=== PATIENT | female | born 1965 | race Caucasian/White ===

== ENCOUNTER → 2020-10-10 | Outpatient (CLI) | payer OTHER ==
--- NOTE | 2020-10-13 16:36 | BD ---
EXAMINATION TYPE: Axial Bone Density DATE OF EXAM: 10/10/2020 COMPARISON: NONE CLINICAL HISTORY: 55 YR OLD FEMALE.....ICD-10 CODE: N95.1 POST MENOPAUSAL Height: 61.1 Weight: 284 FRAX RISK QUESTIONS: History of Fracture in Adulthood: YES Secondary Osteoporosis: YES 3. Menopause before 45: YES Current Tobacco Use: QUIT 8 YRS AGO RISK FACTORS HISTORY OF: HX OF RT HAND FX AN ADULT Family History of Osteoporosis: UNSURE Diet low in dairy products/other sources of calcium: NOT SINCE MAY 2020 Postmenopausal woman: YES, AT AGE 41 NATURALLY PT USES A CANE Lost more than 2 inches in height since high school: YES Hyperparathyroidism: NO Adrenal Insufficiency: NO MEDICATIONS: Additional Medications: BP MEDS, DIABETIC MEDS, REFLUX MEDS, STATIN FOR CHOLESTEROL Additional History: KIDNEY DISEASE, DIABETES, HYPERTENSION, REFLUX AND CHOLESTEROL EXAM MEASUREMENTS: Bone mineral densitometry was performed using the [employer] System. Bone mineral density as measured about the Lumbar spine is: ----- L1-L4(G/cm2): 1.358 T Score Values are as follows: ----- L1: 1.7 ----- L2: 0.8 ----- L3: 1.5 ----- L4: 1.8 ----- L1-L4: 1.5 Bone mineral density .....FIRST BONE DENSITY SCAN....BASELINE STUDY Bone mineral density about the R hip (g/cm2): 1.090 Bone mineral density about the L hip (g/cm2): 1012 T Score values are as follows: -----R Neck: 0.6 -----L Neck: 0.0 -----R Total: 0.7 -----L Total: 0.0 Bone mineral density FIRST DEXA SCAN....BASELINE STUDY FRAX%S: THERE IS A 7.6% CHANCE FOR A MAJOR OSTEOPOROTIC FX AND A 0.1% FOR HIP.....PROBABILITY FOR FX IN 10 YRS TIME IMPRESSION: Normal (Values between +1 and -1 indicate normal bone mass). Consider repeating this study in 5 year s or sooner if there is some new clinical indication. NOTE: T-SCORE=SD OF THE YOUNG ADULT MEAN.
== END | disposition home or self-care (01) ==
LOC: RADBDWWP 10:32
PROVIDERS: ATTEND Obstetrics & Gynecology
DX: Z13.820 Encounter for screening for osteoporosis (principal); Z78.0 Asymptomatic menopausal state
CPT/HCPCS: 77080

== ENCOUNTER 2021-02-18 10:26 | Inpatient (IN) | payer OTHER ==
--- NOTE | 2021-02-18 11:03 | ED ---
General Adult HPI - General Chief complaint: Arrhythmia/Palpitations Stated complaint: Palpations Time Seen by Provider: 02/18/21 10:41 Source: patient, RN notes reviewed, old records reviewed Mode of arrival: wheelchair Limitations: no limitations - History of Present Illness Initial comments: 55-year-old female presenting with palpitations over the past 24 hours. She has no associated chest pain. She does have some mild discomfort between her bila teral shoulder blades. No nausea vomiting. No fever. No cough. She has some mild dyspnea. No lower extremity pain or swelling. No history of arrhythmia. She has had intermittent palpitations for many years but these are not sustained. - Related Data Home Medications Medication Instructions Recorded Confirmed Aspirin 162 mg PO DAILY 12/16/14 03/07/17 Enalapril/Hydrochlorothiazide 1 tab PO DAILY 12/16/14 03/07/17 [Vaseretic 10-25 mg] Triamterene-Hctz 37.5-25Mg 1 cap PO DAILY 12/16/14 03/07/17 [Dyazide] Famotidine [Pepcid] 20 mg PO DAILY 03/07/17 03/07/17 glipiZIDE [Glucotrol] 10 mg PO BID 03/07/17 03/07/17 Previous Rx's Medication Instructions Recorded Meclizine [Antivert] 25 mg PO TID #20 tab 03/07/17 Allergies Allergy/AdvReac Type Severity Reaction Status Date / Time codeine AdvReac Nausea & Verified 02/18/21 10:33 Vomiting,skin flushing Penicillins AdvReac Nausea & Verified 02/18/21 10:33 Vomiting Review of Systems ROS Statement: Those systems with pertinent positive or pertinent negative responses have been documented in the HPI. ROS Other: All systems not noted in ROS Statement are negative. Past Medical History Past Medical History: Diabetes Mellitus, Hyperlipidemia, Hypertension, Osteoarthritis (OA) Additional Past Medical History / Comment(s): PAIN TO STOMACH AFTER EATING History of Any Multi-Drug Resistant Organisms: None Reported Past Surgical History: Cholecystectomy, Hernia Repair, Orthopedic Surgery, Tubal Ligation Additional Past Surgical History / Comment(s): FÁTIMA KNEE,ABD HERNIA REPAIR Additional Past Anesthesia/Blood Transfusion Reaction / Comment(s): SLOW TO WAKE UP FROM ANESTHESIA, STATED "MOM ALMOST AFTER SURGERY-HAD DIFFICULTY WAKING UP" Past Psychological History: No Psychological Hx Reported Past Alcohol Use History: Occasional Past Drug Use History: None Reported - Past Family History Mother Family Medical History: Chest Pain / Angina, Deep Vein Thrombosis (DVT) Father Family Medical History: Coronary Artery Disease (CAD), Diabetes Mellitus Additional Family Medical History / Comment(s): IN CAR ACCIDENT General Exam Limitations: no limitations General appearance: alert, in no apparent distress Head exam: Present: atraumatic, normocephalic Eye exam: Present: normal appearance, PERRL ENT exam: Present: normal exam Neck exam: Present: normal inspection. Absent: tenderness Respiratory exam: Present: normal lung sounds bilaterally, respiratory distress Cardiovascular Exam: Present: tachycardia, irregular rhythm GI/Abdominal exam: Present: soft. Absent: distended, tenderness, guarding, rebound Extremities exam: Present: normal inspection, normal capillary refill. Absent: pedal edema Neurological exam: Present: alert, oriented X3, CN II-XII intact. Absent: motor sensory deficit Psychiatric exam: Present: normal affect, normal mood Skin exam: Present: warm, dry, intact. Absent: cyanosis, diaphoretic, erythema Course Vital Signs 02/18/21 02/18/21 10:33 13:08 Temperature 98.0 F 98.5 F Pulse Rate 98 101 H Respiratory 16 18 Rate Blood Pressure 158/85 145/98 O2 Sat by Pulse 96 100 Oximetry EKG Findings - EKG Comments: EKG Findings:: EKG: Atrial fibrillation with rapid ventricular response, low voltage, rate of 109, QRS duration 90, QTC 457, no ST segment elevation. Medical Decision Making - Medical Decision Making 55-year-old female presenting with palpitations, found to be in atrial fibrillation with RVR. No previous history. Patient is otherwise well- appearing with stable vitals. She has a normal CBC, normal CMP, she has a minimally elevated troponin which is likely from demand at 0.044. She started on Cardizem and heparin. She will be admitted to a monitored bed with cardiology on consultation. Case is discussed with Dr. Paz. - Lab Data Result diagrams: 02/18/21 11:08 02/18/21 11:08 Lab Results 02/18/21 02/18/21 02/18/21 Range/Units 11:08 11:08 11:08 WBC 9.7 (3.8-10.6) k/uL RBC 4.87 (3.80-5.40) m/uL Hgb 14.8 (11.4-16.0) gm/dL Hct 43.6 (34.0-46.0) % MCV 89.4 (80.0-100.0) fL MCH 30.3 (25.0-35.0) pg MCHC 33.9 (31.0-37.0) g/dL RDW 14.3 (11.5-15.5) % Plt Count 372 (150-450) k/uL MPV 6.7 Neutrophils % 71 % Lymphocytes % 16 % Monocytes % 6 % Eosinophils % 4 % Basophils % 1 % Neutrophils # 6.9 (1.3-7.7) k/uL Lymphocytes # 1.5 (1.0-4.8) k/uL Monocytes # 0.6 (0-1.0) k/uL Eosinophils # 0.4 (0-0.7) k/uL Basophils # 0.1 (0-0.2) k/uL PT 10.3 (9.0-12.0) sec INR 1.0 (<1.2) APTT 22.4 (22.0-30.0) sec Sodium 138 (137-145) mmol/L Potassium 4.2 (3.5-5.1) mmol/L Chloride 103 (98-107) mmol/L Carbon Dioxide 23 (22-30) mmol/L Anion Gap 12 mmol/L BUN 22 H (7-17) mg/dL Creatinine 0.64 (0.52-1.04) mg/dL Est GFR (CKD-EPI)AfAm >90 (>60 ml/min/1.73 sqM) Est GFR (CKD-EPI)NonAf >90 (>60 ml/min/1.73 sqM) Glucose 236 H (74-99) mg/dL Calcium 10.1 (8.4-10.2) mg/dL Magnesium 1.9 (1.6-2.3) mg/dL Total Bilirubin 0.6 (0.2-1.3) mg/dL AST 26 (14-36) U/L ALT 21 (4-34) U/L Alkaline Phosphatase 59 (38-126) U/L Troponin I (0.000-0.034) ng/mL Total Protein 7.5 (6.3-8.2) g/dL Albumin 4.3 (3.5-5.0) g/dL TSH 1.040 (0.465-4.680) mIU/L 02/18/21 Range/Units 11:08 WBC (3.8-10.6) k/uL RBC (3.80-5.40) m/uL Hgb (11.4-16.0) gm/dL Hct (34.0-46.0) % MCV (80.0-100.0) fL MCH (25.0-35.0) pg MCHC (31.0-37.0) g/dL RDW (11.5-15.5) % Plt Count (150-450) k/uL MPV Neutrophils % % Lymphocytes % % Monocytes % % Eosinophils % % Basophils % % Neutrophils # (1.3-7.7) k/uL Lymphocytes # (1.0-4.8) k/uL Monocytes # (0-1.0) k/uL Eosinophils # (0-0.7) k/uL Basophils # (0-0.2) k/uL PT (9.0-12.0) sec INR (<1.2) APTT (22.0-30.0) sec Sodium (137-145) mmol/L Potassium (3.5-5.1) mmol/L Chloride (98-107) mmol/L Carbon Dioxide (22-30) mmol/L Anion Gap mmol/L BUN (7-17) mg/dL Creatinine (0.52-1.04) mg/dL Est GFR (CKD-EPI)AfAm (>60 ml/min/1.73 sqM) Est GFR (CKD-EPI)NonAf (>60 ml/min/1.73 sqM) Glucose (74-99) mg/dL Calcium (8.4-10.2) mg/dL Magnesium (1.6-2.3) mg/dL Total Bilirubin (0.2-1.3) mg/dL AST (14-36) U/L ALT (4-34) U/L Alkaline Phosphatase (38-126) U/L Troponin I 0.044 H* (0.000-0.034) ng/mL Total Protein (6.3-8.2) g/dL Albumin (3.5-5.0) g/dL TSH (0.465-4.680) mIU/L Critical Care Time Critical Care Time: Yes Total Critical Care Time: 35 Disposition Clinical Impression: Atrial fibrillation with RVR, Elevated troponin Disposition: ADMITTED IP TO THIS [facility] Condition: Stable Is patient prescribed a controlled substance at d/c from ED?: No Referrals: Nonstaff,Physician [Primary Care Provider] - 1-2 days Decision to Admit Reason: Admit from EC Decision Date: 02/18/21 Decision Time: 14:20
--- NOTE | 2021-02-18 11:19 | XR ---
EXAMINATION TYPE: XR chest 2V DATE OF EXAM: 02/18/2021 COMPARISON: 03/07/2017 INDICATION: Dysrhythmia lightheaded TECHNIQUE: Frontal and lateral views of the chest are obtained. FINDINGS: The heart size is normal. The pulmonary vasculature is normal. The lungs are clear. IMPRESSION: 1. No acute pulmonary process.
[2021-02-18 11:28] LABS: Basophils # (A) 0.1 k/uL (0-0.2); Basophils % (A) 1 %; Eosinophils # (A) 0.4 k/uL (0-0.7); Eosinophils % (A) 4 %; HCT 43.6 % (34.0-46.0); HGB 14.8 gm/dL (11.4-16.0); Lymphocytes # (A) 1.5 k/uL (1.0-4.8); Lymphocytes % (A) 16 %; MCH 30.3 pg (25.0-35.0); MCHC 33.9 g/dL (31.0-37.0); MCV 89.4 fL (80.0-100.0); Mean Platelet Volume 6.7; Monocytes # (A) 0.6 k/uL (0-1.0); Monocytes % (A) 6 %; Neutrophils # (A) 6.9 k/uL (1.3-7.7); Neutrophils % (A) 71 %; Platelet Count 372 k/uL (150-450); RBC 4.87 m/uL (3.80-5.40); RDW 14.3 % (11.5-15.5); WBC 9.7 k/uL (3.8-10.6)
[2021-02-18 11:37] LABS: Partial Thromboplastin Time 22.4 sec (22.0-30.0); Prothrombin Time 10.3 sec (9.0-12.0)
[2021-02-18 11:42] LABS: ALT 21 U/L (4-34); AST 26 U/L (14-36); African American GFR (CKD) >90 (>60 ml/min/1.73 sqM); Albumin 4.3 g/dL (3.5-5.0); Alkaline Phosphatase 59 U/L (38-126); Anion Gap 12 mmol/L; Blood Urea Nitrogen 22 mg/dL (7-17); Calcium 10.1 mg/dL (8.4-10.2); Carbon Dioxide 23 mmol/L (22-30); Chloride 103 mmol/L (98-107); Glucose 236 mg/dL (74-99); Magnesium 1.9 mg/dL (1.6-2.3); Non-African American GFR(CKD) >90 (>60 ml/min/1.73 sqM); Potassium 4.2 mmol/L (3.5-5.1); Sodium 138 mmol/L (137-145); Total Bilirubin 0.6 mg/dL (0.2-1.3); Total Protein 7.5 g/dL (6.3-8.2)
[2021-02-18] MEDS ORDERED: HEPARIN SODIUM 1,000 UN/ML (10ML VL) IV ONE (13:04)
[2021-02-18] MEDS ORDERED: DILTIAZEM DRIP BOLUS FROM BAG 1 MG SOLN IV ONE (13:04)
[2021-02-18] MEDS: HEPARIN SOD,PORK IN 0.45% NACL 25,000 UNIT in 0.45% NACL 1 250ML.BAG IV SCH (14:11)
[2021-02-18] MEDS: DILTIAZEM 125 MG in SODIUM CHLORIDE 0.9% 100 ML IV SCH (14:12)
[2021-02-18] MEDS ORDERED: ACETAMINOPHEN TAB 325 MG TAB PO PRN (14:17)
[2021-02-18] MEDS ORDERED: NALOXONE 0.4 MG/ML 1 ML VIAL IV PRN (14:17)
[2021-02-18 19:52] LABS: Glucose,Whole Blood 158 mg/dL (75-99)
[2021-02-18] MEDS: ASPIRIN 81 MG PO SCH (20:05)
[2021-02-18] MEDS: ATORVASTATIN 10 MG TAB PO SCH (20:05)
[2021-02-18] MEDS: HEPARIN SODIUM 1,000 UN/ML (10ML VL) IV PRN (20:05)
[2021-02-18] MEDS: FAMOTIDINE 20 MG TAB PO SCH (20:05)
--- NOTE | 2021-02-18 20:33 | HP ---
HISTORY AND PHYSICAL DATE OF SERVICE: February 18, 2021. CHIEF COMPLAINT: Palpitations. HISTORY OF PRESENT ILLNESS: This 55-year-old woman with a past medical history of diabetes, hypertension, hyperlipidemia, history of DJD, cholecystectomy, being followed by apparently a tele doc from [place] according to her as the primary physician. The patient had multiple episodes of palpitations and today also the patient had palpitations, lasted for almost several hours and the patient came to [facility]. The patient was found to be in atrial fibrillation Cardizem was initiated. Patient admitted to the hospital for further evaluation and treatment. Troponin is also slightly elevated. There is no history of fever, rigors or chills. No history of headache, loss of consciousness or seizures. Patient also complaining of pain radiating between both shoulders at this time. PAST MEDICAL HISTORY: Diabetes type 2, hyperlipidemia, hypertension, DJD, history of cholecystectomy. MEDICATIONS: Prior to admission: hydrochlorothiazide, Glucotrol, Zocor, Steglatro, Vasotec, calcium with vitamin D, Pepcid, aspirin. Doses reviewed. ALLERGIES: CODEINE AND PENICILLIN. FAMILY HISTORY: History of chest pain, DVT. SOCIAL HISTORY: Previous history of smoking. No history of alcohol intake. REVIEW OF SYSTEMS: ENT: No diminished vision. No diminished hearing. CARDIOVASCULAR system: As mentioned earlier. RESPIRATORY: As mentioned earlier. GI: No nausea or vomiting. : No dysuria. NERVOUS SYSTEM: No numbness, weakness. ALLERGY/IMMUNOLOGY: No asthma or hayfever. MUSCULOSKELETAL as mentioned earlier. HEMATOLOGY/ONCOLOGY: No history of anemia. ENDOCRINE: No history of diabetes or hypothyroidism. CONSTITUTIONAL: As mentioned earlier. DERMATOLOGY negative. RHEUMATOLOGY: Negative. CONSTITUTIONAL: As mentioned earlier. PHYSICAL EXAMINATION: Alert and oriented times three. Pulse is 101. Blood pressure 145/89, respiration 18, temperature 98. Pulse ox 100 percent on 2 L. HEENT: Conjunctivae normal. NECK: No JVD. CARDIOVASCULAR: S1, S2 tachycardic and irregular. Cardizem drip on flow. RESPIRATORY: Breath sounds diminished in the bases. Scattered rhonchi and crackles. ABDOMEN: Soft, nontender. LEGS: No edema. No swelling. NERVOUS SYSTEM: Higher functions as mentioned earlier. Moves all 4 limbs. No focal motor or sensory deficits. LYMPHATICS: No lymph nodes palpable in the neck, axillae or groin. SKIN: No ulcer, rashes or bleeding. JOINTS: No active deforming arthropathy. LABS: CBC within normal limits. Glucose 236. Troponin 0.044 and 0.039. ASSESSMENT: 1. Atrial fibrillation with a fast ventricular rate. 2. Troponin 0.039, possible acute oge-JO-vpbyazi-elevation myocardial infarction. 3. Diabetes mellitus type 2, uncontrolled with hyperglycemia. 4. Hypertension. 5. Hyperlipidemia. 6. History of degenerative joint disease. 7. History of cholecystectomy. 8. History of hernia repair. 9. Remote history of nicotine dependence. 10.Obesity with body mass of 52.3. 11.FULL CODE. RECOMMENDATIONS AND DISCUSSION: This 55-year-old woman who presented with multiple complex medical issues, we will monitor the patient closely. Continue the current medications, continue the Cardizem. Cardiology evaluation. Two-D echo with Doppler. Also recommend a D-dimer and if it is positive, we will definitely recommend a CT angio of the chest also. Prognosis guarded. Further recommendations to follow. CASSIUS / TALITAN: [id number] / JUANITA
[2021-02-18] MEDS: glipiZIDE 10 MG TAB PO SCH (21:33)
[2021-02-18] MEDS: CALCIUM CARB-VIT D 500 MG-5 MCG TAB PO SCH (21:33)
[2021-02-18 21:48] LABS: Appearance,Urine Cloudy (Clear); Bacteria,Urine Moderate /hpf; Bilirubin,Urine Negative (Negative); Blood,Urine Large (Negative); Color,Urine Light Yellow; Glucose,Urine (UA) 4+ (Negative); Ketones,Urine Negative (Negative); Leukocyte Esterase,Urine Large (Negative); Mucus,Urine Rare /hpf; Nitrite,Urine Positive (Negative); Protein,Urine Trace (Negative); RBC,Urine 104 /hpf (0-5); Specific Gravity,Urine 1.023 (1.001-1.035); Squamous Epithelial Cell,Urine 1 /hpf (0-4); Urobilinogen,Urine <2.0 mg/dL (<2.0); WBC,Urine >182 /hpf (0-5)
[2021-02-19 03:34] LABS: Basophils # (A) 0.1 k/uL (0-0.2); Basophils % (A) 1 %; Eosinophils # (A) 0.5 k/uL (0-0.7); Eosinophils % (A) 6 %; HCT 42.1 % (34.0-46.0); Lymphocytes # (A) 2.9 k/uL (1.0-4.8); Lymphocytes % (A) 30 %; MCH 30.1 pg (25.0-35.0); MCHC 33.1 g/dL (31.0-37.0); MCV 90.9 fL (80.0-100.0); Mean Platelet Volume 6.9; Monocytes # (A) 0.6 k/uL (0-1.0); Monocytes % (A) 6 %; Neutrophils # (A) 5.1 k/uL (1.3-7.7); Neutrophils % (A) 54 %; Platelet Count 344 k/uL (150-450); RBC 4.63 m/uL (3.80-5.40); RDW 14.5 % (11.5-15.5); WBC 9.4 k/uL (3.8-10.6)
[2021-02-19 03:35] LABS: ALT 18 U/L (4-34); AST 22 U/L (14-36); African American GFR (CKD) >90 (>60 ml/min/1.73 sqM); Albumin 3.8 g/dL (3.5-5.0); Alkaline Phosphatase 54 U/L (38-126); Anion Gap 10 mmol/L; Blood Urea Nitrogen 21 mg/dL (7-17); Calcium 9.5 mg/dL (8.4-10.2); Carbon Dioxide 23 mmol/L (22-30); Chloride 103 mmol/L (98-107); Glucose 112 mg/dL (74-99); Non-African American GFR(CKD) >90 (>60 ml/min/1.73 sqM); Potassium 3.8 mmol/L (3.5-5.1); Sodium 136 mmol/L (137-145); Total Bilirubin 0.4 mg/dL (0.2-1.3); Total Protein 6.6 g/dL (6.3-8.2)
[2021-02-19] MEDS: HEPARIN SODIUM 1,000 UN/ML (10ML VL) IV PRN (03:51)
[2021-02-19 06:27] LABS: Glucose,Whole Blood 117 mg/dL (75-99)
[2021-02-19] MEDS: HEPARIN SOD,PORK IN 0.45% NACL 25,000 UNIT in 0.45% NACL 1 250ML.BAG IV SCH (06:34)
[2021-02-19 06:42] LABS: Basophils # (A) 0.1 k/uL (0-0.2); Basophils % (A) 1 %; Eosinophils # (A) 0.5 k/uL (0-0.7); Eosinophils % (A) 5 %; HCT 42.1 % (34.0-46.0); HGB 13.9 gm/dL (11.4-16.0); Lymphocytes # (A) 2.5 k/uL (1.0-4.8); Lymphocytes % (A) 25 %; MCHC 33.1 g/dL (31.0-37.0); MCV 90.9 fL (80.0-100.0); Mean Platelet Volume 7.1; Monocytes # (A) 0.7 k/uL (0-1.0); Monocytes % (A) 7 %; Neutrophils # (A) 5.9 k/uL (1.3-7.7); Neutrophils % (A) 59 %; Platelet Count 338 k/uL (150-450); RBC 4.63 m/uL (3.80-5.40); RDW 14.4 % (11.5-15.5); WBC 10.1 k/uL (3.8-10.6)
[2021-02-19 06:49] LABS: INR 1.1 (<1.2); Prothrombin Time 11.4 sec (9.0-12.0)
[2021-02-19] MEDS: CALCIUM CARB-VIT D 500 MG-5 MCG TAB PO SCH ×2 (08:14→20:05)
[2021-02-19] MEDS: METOPROLOL TARTRATE 50 MG TAB PO SCH ×2 (08:14→20:05)
[2021-02-19] MEDS: lisinopriL 20 MG TAB PO SCH (08:14)
[2021-02-19] MEDS: hydroCHLOROthiazide 25 MG TAB PO SCH (08:14)
[2021-02-19] MEDS: glipiZIDE 10 MG TAB PO SCH ×2 (08:14→17:04)
[2021-02-19 10:11] LABS: Partial Thromboplastin Time 38.2 sec (22.0-30.0)
--- NOTE | 2021-02-19 10:39 | P.CRDCN ---
History of Present Illness Consult date: 02/19/21 History of present illness: HISTORY OF PRESENT ILLNESS: This is a 55-year-old female with a past medical history significant for hypertension, hyperlipidemia, diabetes, and former nicotine dependence. Patient does not follow with a teaching aide. We have been asked to see the patient in consultation for new onset A. fib. Patient examined at the bedside. Patient states 2 nights ago she began having palpitations and shortness of breath as she was cleaning up dishes from dinner. She reports that she had palpitations in the past but they usually go away after a minute and on this occasion her palpitations persisted so she came to the hospital for further evaluation. Patient was found to be in A. fib with mild RVR. Patient was started on IV Cardizem and IV heparin. Patient remains in atrial fibrillation this morning with a heart rate in the 90s. She denies chest pain or pressure. She denies shortness of breath. She denies palpitations. She denies dizziness or lightheadedness. EKG reveals atrial fibrillation with mild RVR. Chest xray negative for acute process Laboratory data: WBC 10.1. Hemoglobin 13.9. Platelet count 338. D-dimer 0.65. Sodium 136. Potassium 3.8. BUN 21. Creatinine 0.70. TSH 1.040. Current home cardiac medications include hydrochlorothiazide 25 mg daily, Zocor 20 mg daily, enalapril 20 mg daily, aspirin 162 mg at night REVIEW OF SYSTEMS: At the time of my exam: CONSTITUTIONAL: Denies fever or chills. HEENT: Denies blurred vision, vision changes, or eye pain. Denies hemoptysis CARDIOVASCULAR: Denies chest pain. Denies orthopnea. Denies PND. Denies palpitations RESPIRATORY: Denies shortness of breath. GASTROINTESTINAL: Denies abdominal pain. Denies nausea or vomiting. HEMATOLOGIC: Denies bleeding disorders. GENITOURINARY: Denies any blood in urine. SKIN: Denies pruitis. Denies rash. PHYSICAL EXAM: VITAL SIGNS: Reviewed. GENERAL: Well-developed in no acute distress. HEENT: Head is normocephalic. Pupils are equal, round. Sclerae anicteric. Mucous membranes of the mouth are moist. Neck supple. No JVD or thyromegaly LUNGS: Respirations even and unlabored. Lungs essentially clear to auscultation bilaterally. HEART: Irregular rate and rhythm. S1 and S2 heard. ABDOMEN: Soft. Nondistended. Nontender. EXTREMITIES: Normal range of motion. No clubbing or cyanosis. Peripheral pulses intact. No lower extremity edema NEUROLOGIC: Awake and alert. Oriented x 3. ASSESSMENT: Palpitations New-onset atrial fibrillation with RVR Abnormal troponins, secondary to above, no evidence of acute coronary syndrome Hypertension Hyperlipidemia Diabetes Former nicotine dependence, patient quit smoking 9 years ago Morbid obesity: BMI 52.3 PLAN: Obtain 2-D echo to assess cardiac structure and function TSH within normal limits Begin metoprolol 50 mg twice a day Discontinue IV Cardizem Obtain chest CTA to rule out PE Begin Eliquis 5mg BID. Case management consulted and verified insurance c overage. Further recommendations pending patient course Nurse practitioner note has been reviewed by physician. Signing provider agrees with the documented findings, assessment, and plan of care. Past Medical History Past Medical History: Diabetes Mellitus, Hyperlipidemia, Hypertension, Osteoarthritis (OA), Renal Disease, Sleep Apnea/CPAP/BIPAP Additional Past Medical History / Comment(s): PAIN TO STOMACH AFTER EATING History of Any Multi-Drug Resistant Organisms: None Reported Past Surgical History: Cholecystectomy, Hernia Repair, Orthopedic Surgery, Tubal Ligation Additional Past Surgical History / Comment(s): FÁTIMA KNEE,ABD HERNIA REPAIR Additional Past Anesthesia/Blood Transfusion Reaction / Comment(s): SLOW TO WAKE UP FROM ANESTHESIA, STATED "MOM ALMOST AFTER SURGERY-HAD DIFFICULTY WAKING UP" Past Psychological History: No Psychological Hx Reported Smoking Status: Former smoker Past Alcohol Use History: Occasional Additional Past Alcohol Use History / Comment(s): QUIT SMOKING 2010, STARTED SMOKING 1977 Past Drug Use History: None Reported - Past Family History Mother Family Medical History: Chest Pain / Angina, Deep Vein Thrombosis (DVT) Father Family Medical History: Coronary Artery Disease (CAD), Diabetes Mellitus Additional Family Medical History / Comment(s): IN CAR ACCIDENT Medications and Allergies Home Medications Medication Instructions Recorded Confirmed Type Aspirin 162 mg PO HS 12/16/14 02/18/21 History Famotidine [Pepcid] 20 mg PO HS 03/07/17 02/18/21 History glipiZIDE [Glucotrol] 10 mg PO BID 03/07/17 02/18/21 History Calcium Carbonate/Vitamin D3 1 cap PO BID 02/18/21 02/18/21 History [Calcium 600 mg-D3 10 Mcg (400 Iu)] Enalapril [Vasotec] 20 mg PO DAILY 02/18/21 02/18/21 History Ertugliflozin Pidolate [Steglatro] 15 mg PO DAILY 02/18/21 02/18/21 History Simvastatin [Zocor] 20 mg PO HS 02/18/21 02/18/21 History hydroCHLOROthiazide 25 mg PO DAILY 02/18/21 02/18/21 History Apixaban [Eliquis] 5 mg PO BID #60 tab 02/19/21 Rx Allergies Allergy/AdvReac Type Severity Reaction Status Date / Time codeine AdvReac Nausea & Verified 02/18/21 16:00 Vomiting,skin flushing Penicillins AdvReac Nausea & Verified 02/18/21 16:00 Vomiting Physical Exam Vitals: Vital Signs Temp Pulse Pulse Resp BP BP Pulse Ox 02/19/21 04:00 98.0 F 76 18 130/84 98 02/18/21 23:15 98.6 F 78 18 118/79 96 02/18/21 21:53 98.1 F 72 18 107/76 96 02/18/21 19:45 98.8 F 84 18 131/85 96 02/18/21 14:22 98 18 135/89 98 02/18/21 13:08 98.5 F 101 H 18 145/98 100 02/18/21 10:33 98.0 F 98 16 158/85 96 Intake and Output 02/18/21 02/19/21 02/19/21 22:59 06:59 14:59 Intake Total 62 157.781 Balance 62 157.781 Intake: Intake, IV Titration 62 157.781 Amount Diltiazem 125 mg In 5 Sodium Chloride 0.9% 100 ml @ 5 MG/HR 5 mls/hr IV .Q24H [facility] Rx#:[id number] Heparin Sod,Pork in 0.45% 57 157.781 NaCl 25,000 unit In 0.45 % NaCl 1 250ml.bag @ 7. 959 UNITS/KG/HR 10 mls/hr IV .Q24H [facility] Rx#: [id number] Other: Voiding Method Toilet Weight 125.645 kg Results 02/19/21 05:48 02/19/21 03:00 Cardiac Enzymes 02/18/21 02/18/21 02/18/21 Range/Units 11:08 11:08 15:34 AST 26 (14-36) U/L Troponin I 0.044 H* 0.039 H* (0.000-0.034) ng/mL 02/18/21 02/19/21 Range/Units 19:18 03:00 AST 22 (14-36) U/L Troponin I 0.029 (0.000-0.034) ng/mL Coagulation 02/18/21 02/18/21 02/19/21 Range/Units 11:08 19:18 03:00 PT 10.3 (9.0-12.0) sec APTT 22.4 24.2 28.8 (22.0-30.0) sec 02/19/21 Range/Units 05:48 PT 11.4 (9.0-12.0) sec APTT (22.0-30.0) sec CBC 02/18/21 02/19/21 02/19/21 Range/Units 11:08 03:00 05:48 WBC 9.7 9.4 10.1 (3.8-10.6) k/uL RBC 4.87 4.63 4.63 (3.80-5.40) m/uL Hgb 14.8 14.0 13.9 (11.4-16.0) gm/dL Hct 43.6 42.1 42.1 (34.0-46.0) % Plt Count 372 344 338 (150-450) k/uL Comprehensive Metabolic Panel 02/18/21 02/19/21 Range/Units 11:08 03:00 Sodium 138 136 L (137-145) mmol/L Potassium 4.2 3.8 (3.5-5.1) mmol/L Chloride 103 103 (98-107) mmol/L Carbon Dioxide 23 23 (22-30) mmol/L BUN 22 H 21 H (7-17) mg/dL Creatinine 0.64 0.70 (0.52-1.04) mg/dL Glucose 236 H 112 H (74-99) mg/dL Calcium 10.1 9.5 (8.4-10.2) mg/dL AST 26 22 (14-36) U/L ALT 21 18 (4-34) U/L Alkaline Phosphatase 59 54 (38-126) U/L Total Protein 7.5 6.6 (6.3-8.2) g/dL Albumin 4.3 3.8 (3.5-5.0) g/dL Current Medications Generic Name Dose Route Start Last Admin Trade Name Freq PRN Reason Stop Dose Admin Acetaminophen 650 mg 02/18/21 14:17 02/18/21 14:28 Acetaminophen Tab 325 Mg Tab PO 650 mg Q6HR PRN Administration Mild Pain or Fever > 100.5 Aspirin 162 mg 02/18/21 21:00 02/18/21 20:05 Aspirin 81 Mg PO 162 mg HS [facility] Administration Atorvastatin Calcium 10 mg 02/18/21 21:00 02/18/21 20:05 Atorvastatin 10 Mg Tab PO 10 mg HS [facility] Administration Calcium Carbonate 1 each 02/18/21 21:00 02/18/21 21:33 Calcium Carb-Vit D 500 Mg-5 Mcg Tab PO 1 each BID [facility] Administration Famotidine 20 mg 02/18/21 21:00 02/18/21 20:05 Famotidine 20 Mg Tab PO 20 mg HS [facility] Administration Glipizide 10 mg 02/18/21 21:00 02/18/21 21:33 Glipizide 10 Mg Tab PO 10 mg AC-BID [facility] Administration Heparin Sodium (Porcine) 0 unit 02/18/21 13:04 02/19/21 03:51 Heparin Sodium 1,000 Un/Ml (10ml Vl) IV 4,000 unit PER PROTOCOL PRN Administration Low PTT Protocol Hydrochlorothiazide 25 mg 02/19/21 09:00 Hydrochlorothiazide 25 Mg Tab PO DAILY [facility] Heparin Sodium/Sodium Chloride 250 mls @ 10 mls/hr 02/18/21 13:15 02/19/21 06:34 25,000 unit/ Sodium Chloride IV 13.959 units/kg/hr .Q24H [facility] 17.539 mls/hr Administration Protocol 7.959 UNITS/KG/HR Diltiazem HCl 125 mg/ Sodium 125 mls @ 5 mls/hr 02/18/21 14:00 02/18/21 14:12 Chloride IV 5 mg/hr .Q24H [facility] 5 mls/hr Administration 5 MG/HR Lisinopril 40 mg 02/19/21 09:00 Lisinopril 20 Mg Tab PO DAILY [facility] Metoprolol Tartrate 50 mg 02/19/21 09:00 Metoprolol Tartrate 50 Mg Tab PO BID [facility] Naloxone HCl 0.2 mg 02/18/21 14:17 Naloxone 0.4 Mg/Ml 1 Ml Vial IV Q2M PRN Opioid Reversal Ertugliflozin 15 mg 02/19/21 09:00 Pidolate [Steglatro] PO 15 Mg Tablet DAILY [facility] Intake and Output 02/18/21 02/19/21 02/19/21 22:59 06:59 14:59 Intake Total 62 157.781 Balance 62 157.781 Intake: Intake, IV Titration 62 157.781 Amount Diltiazem 125 mg In 5 Sodium Chloride 0.9% 100 ml @ 5 MG/HR 5 mls/hr IV .Q24H [facility] Rx#:[id number] Heparin Sod,Pork in 0.45% 57 157.781 NaCl 25,000 unit In 0.45 % NaCl 1 250ml.bag @ 7. 959 UNITS/KG/HR 10 mls/hr IV .Q24H [facility] Rx#: [id number] Other: Voiding Method Toilet Weight 125.645 kg 02/19/21 05:48 02/19/21 03:00
--- NOTE | 2021-02-19 11:33 | CT ---
CT CHEST FOR PULMONARY EMBOLISM. EXAMINATION TYPE: CT chest angio for PE DATE OF EXAM: 02/19/2021 INDICATION: Rule out PE. New onset A-fib, Elevated troponin CT DLP: 912.3 mGycm, Automated exposure control for dose reduction was used. CONTRAST: Patient injected with 100 ml mL of Isovue 370. COMPARISON: None TECHNIQUE: CT of the chest is performed on a spiral scan at 2 mm thick sections. Study is performed with intravenous contrast timed for evaluation for pulmonary embolism. This will limit additional po rtions of the evaluation. 3-D MIP images reconstructed by the technologist are reviewed on the compu ter in the coronal and sagittal planes. Contrast timing is suboptimal with greater contrast within th e arterial system within the pulmonary arteries. FINDINGS: No persistent filling defects are evident to suggest an acute pulmonary embolism to the level of cont rast available. No mediastinal or hilar adenopathy enlarged by CT criteria is evident. There is a 1.1 cm left axilla ry lymph node present. Some additional shoddy adenopathy is the left axilla. The ascending aorta diam eter at the level of the main pulmonary artery is 3.2 cm. The main pulmonary artery diameter at the bifurcation is 3.1 cm. Lung windows are clear. Limited CT section through the upper abdomen are unremarkable. IMPRESSIONS: 1. No acute pulmonary embolism. Contrast timing however is suboptimal and there is some limitation fo r identifying small peripheral emboli.
[2021-02-19 11:44] LABS: Glucose,Whole Blood 131 mg/dL (75-99)
--- NOTE | 2021-02-19 11:44 | ECHOF ---
Referral Reason:afib MEASUREMENTS -------- HEIGHT: 154.9 cm WEIGHT: 125.6 kg BP: 124/91 RVIDd: 3.8 cm (< 3.3) IVSd: 1.6 cm (0.6 - 1.1) LVIDd: 4.1 cm (3.9 - 5.3) LVPWd: 2.0 cm (0.6 - 1.1) IVSs: 1.9 cm LVIDs: 2.4 cm LVPWs: 1.9 cm LAESV Index (A-L): 25.02 ml/m Ao Diam: 3.4 cm (2.0 - 3.7) RAP: 5.00 mmHg RVSP: 19.46 mmHg FINDINGS -------- Atrial fibrillation. This was a technically difficult study with suboptimal views. The left ventricular size is normal. There is moderate concentric left ventricular hypertrophy. O verall left ventricular systolic function is normal with, an EF between 55 - 60 %. Left ventricular fillimg pressure cannot be estimated due to Atrial fibrillation. The right ventricle is mild to moderately enlarged. Normal LA size by volume 22+/-6 ml/m2. The right atrial size is normal. 5.0mg of Lumason was utilized for enhancement of images Interatrial and interventricular septum intact. There is no evidence of aortic regurgitation. There is no evidence of aortic stenosis. No mitral regurgitation. Mild tricuspid regurgitation present. There is no evidence of pulmonary hypertension. The right v entricular systolic pressure, as measured by Doppler, is 19.46mmHg. There is no pulmonic regurgitation present. The aortic root size is normal. IVC Not well visulized. Echo free space may represent effusion or a pericardial fat pad. CONCLUSIONS -------- 1. The left ventricular size is normal. 2. There is moderate concentric left ventricular hypertrophy. 3. Overall left ventricular systolic function is normal with, an EF between 55 - 60 %. 4. Left ventricular fillimg pressure cannot be estimated due to Atrial fibrillation. 5. The right ventricle is mild to moderately enlarged. 6. Mild tricuspid regurgitation present. 7. Echo free space may represent effusion or a pericardial fat pad. AMMONIA BOX TENDER: Rosa Patton RDCS
[2021-02-19] MEDS: APIXABAN 5 MG TAB PO SCH ×2 (12:42→20:05)
[2021-02-19 16:45] LABS: Glucose,Whole Blood 100 mg/dL (75-99)
[2021-02-19] MEDS: DILTIAZEM 125 MG in SODIUM CHLORIDE 0.9% 100 ML IV SCH (17:00)
--- NOTE | 2021-02-19 18:17 | PN ---
PROGRESS NOTE DATE OF SERVICE: 02/19/2021 This 55-year-old woman who was admitted with palpitations also had atrial fibrillation with fast ventricular rate. Troponins were slightly elevated and a chest CTA was done. Cardiology is following the patient closely. The CTA showed no evidence of acute pulmonary embolism, but it was thought to be suboptimal. PHYSICAL EXAMINATION: Alert and oriented x3. Pulse 84 , blood pressure 134/74, respirations 16, temperature 98.8, pulse ox 94% on room air. HEENT: Conjunctivae normal. NECK: No jugular venous distention. CARDIOVASCULAR: S1, S2 muffled. RESPIRATION: Breath sounds diminished at the bases. ABDOMEN: Soft. NERVOUS SYSTEM: No focal deficit. LABS: D-dimer is 0.64. Other labs are noted. ASSESSMENT: 1. Atrial fibrillation with a fast ventricular rate. 2. Troponin 0.093. Possible acute kle-OY-ltelhza-elevation myocardial infarction, possibly indeterminate. 3. Diabetes mellitus, type 2, uncontrolled with hyperglycemia. 4. Hypertension. 5. Hyperlipidemia. 6. History of degenerative joint disease. 7. History of cholecystectomy. 8. History of hernia repair. 9. Remote history of nicotine dependence. 10.Obesity with body mass index of 52.3. 11.FULL CODE. RECOMMENDATIONS AND DISCUSSION: I recommend to continue current medications, continue with symptomatic treatment. Otherwise, closely follow with Cardiology. Continue with Cardizem. Prognosis guarded. Further recommendations to follow. MMODL / IJN: [id number] / JUANITA
[2021-02-19 19:56] LABS: Glucose,Whole Blood 170 mg/dL (75-99)
[2021-02-19] MEDS: FAMOTIDINE 20 MG TAB PO SCH (20:05)
[2021-02-19] MEDS: ATORVASTATIN 10 MG TAB PO SCH (20:05)
[2021-02-19] MEDS: ASPIRIN 81 MG PO SCH (20:05)
[2021-02-20 06:09] LABS: Glucose,Whole Blood 106 mg/dL (75-99)
[2021-02-20] MEDS: glipiZIDE 10 MG TAB PO SCH (06:53)
[2021-02-20] MEDS: METOPROLOL TARTRATE 50 MG TAB PO SCH (09:01)
[2021-02-20] MEDS: APIXABAN 5 MG TAB PO SCH (09:01)
[2021-02-20] MEDS: lisinopriL 20 MG TAB PO SCH (09:01)
[2021-02-20] MEDS: hydroCHLOROthiazide 25 MG TAB PO SCH (09:01)
[2021-02-20] MEDS: CALCIUM CARB-VIT D 500 MG-5 MCG TAB PO SCH (09:02)
[2021-02-20 09:11] VITALS: RESP 16; TEMP 99.5
[2021-02-20 11:20] LABS: Glucose,Whole Blood 112 mg/dL (75-99)
[2021-02-20 12:21] VITALS: BP 91/59; PULSE 80
--- NOTE | 2021-02-20 13:59 | P.PN ---
Subjective Progress Note Date: 02/20/21 HISTORY OF PRESENT ILLNESS: This is a 55-year-old female with a past medical history significant for hypertension, hyperlipidemia, diabetes, and former nicotine dependence. 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 We have been asked to see the patient in consultation for new onset A. fib. Patient examined at the bedside. Patient states 2 nights ago she began having palpitations and shortness of breath as she was cleaning up dishes from dinner. She reports that she had palpitations in the past but they usually go away after a minute and on this occasion her palpitations persisted so she came to the hospital for further evaluation. Patient was found to be in A. fib with mild RVR. Patient was started on IV Cardizem and IV heparin. Patient remains in atrial fibrillation this morning with a heart rate in the 90s. She denies chest pain or pressure. She denies shortness of breath. She denies palpitations. She denies dizziness or lightheadedness. EKG reveals atrial fibrillation with mild RVR. Chest xray negative for acute process Laboratory data: WBC 10.1. Hemoglobin 13.9. Platelet count 338. D-dimer 0.65. Sodium 136. Potassium 3.8. BUN 21. Creatinine 0.70. TSH 1.040. Current home cardiac medications include hydrochlorothiazide 25 mg daily, Zocor 20 mg daily, enalapril 20 mg daily, aspirin 162 mg at night 02/20/2021 Patient examined this morning at the bedside. Patient denies chest pain or pressure. She denies short of breath. She remains in atrial fibrillation with controlled ventricular rate. Echocardiogram completed revealed ejection fraction 55-60%. CTA negative for pulmonary embolism. PHYSICAL EXAM: VITAL SIGNS: Reviewed. GENERAL: Well-developed in no acute distress. HEENT: Head is normocephalic. Pupils are equal, round. Sclerae anicteric. Mucous membranes of the mouth are moist. Neck supple. No JVD or thyromegaly LUNGS: Respirations even and unlabored. Lungs essentially clear to auscultation bilaterally. HEART: Irregular rate and rhythm. S1 and S2 heard. ABDOMEN: Soft. Nondistended. Nontender. EXTREMITIES: Normal range of motion. No clubbing or cyanosis. Peripheral pulse s intact. No lower extremity edema NEUROLOGIC: Awake and alert. Oriented x 3. ASSESSMENT: Palpitations New-onset atrial fibrillation with RVR Abnormal troponins, secondary to above, no evidence of acute coronary syndrome Hypertension Hyperlipidemia Diabetes Former nicotine dependence, patient quit smoking 9 years ago Morbid obesity: BMI 52.3 PLAN: continue current cardiac medications Patient is stable for discharge home today She is to follow up outpatient with Dr. Christianson Nurse practitioner note has been reviewed by physician. Signing provider agrees with the documented findings, assessment, and plan of care. Objective - Vital Signs Vital signs: Vital Signs Temp 99.5 F 02/20/21 08:00 Pulse 80 02/20/21 12:00 Resp 16 02/20/21 12:00 BP 91/59 02/20/21 12:00 Pulse Ox 97 02/20/21 12:00 Intake & Output 02/19/21 02/20/21 02/20/21 18:59 06:59 18:59 Intake Total 480 277 480 Balance 480 277 480 Weight 127.3 kg Intake: IV 40 Invasive Line 1 20 Invasive Line 2 20 Oral 480 237 480 Other: Voiding Method Toilet Toilet Toilet # Voids 2 - Labs CBC & Chem 7: 02/19/21 05:48 02/19/21 03:00 Labs: Abnormal Lab Results - Last 24 Hours (Table) 02/19/21 02/19/21 02/20/21 Range/Units 16:44 19:53 06:08 POC Glucose (mg/dL) 100 H 170 H 106 H (75-99) mg/dL 02/20/21 Range/Units 11:18 POC Glucose (mg/dL) 112 H (75-99) mg/dL
[2021-02-20] MEDS ORDERED: ASPIRIN 81 MG PO SCH (21:00)
--- NOTE | 2021-02-23 09:40 | P.DS ---
Providers Date of admission: 02/18/21 14:17 Expected date of discharge: 02/20/21 Attending physician: Mary Paz Consults: 02/18/21 14:17 Consult Physician Routine Consulting Provider: Bhavesh Diaz Consult Reason/Comments: New-onset atrial fibrillation Do you want consulting provider notified?: Yes Primary care physician: Physician Nonstaff Hospital Course: Final diagnosis Atrial fibrillation with fast ventricular rate Troponin 0.093. Possible acute non-ST segment elevation myocardial infarction, possibly indeterminate Diabetes mellitus type 2 uncontrolled hyperglycemia Possible acute urinary tract infection Hypertension Hyperlipidemia History of degenerative joint disease History of cholecystectomy History of hernia repair next line remote history of nicotine dependence Obesity with a body mass index of 52.3 Full code Discharge disposition Patient is being discharged in a stable condition with guarded prognosis to home. Patient will follow-up with her primary care Dr. Vidya Blackwood in the outpatient setting upon discharge. Patient is to follow-up with cardiology outpatient. Total time taken is greater than 35 minutes. Hospital course This is a 55-year-old female who was recently admitted with feelings of palpitations also found to have atrial fibrillation with fast ventricular rate and was being closely monitored. She was seen and evaluated by cardiology and underwent 2-D echo which showed some moderate concentric left ventricular hypertrophy with overall LV systolic function is normal with an EF of 55-60 and mild tricuspid regurgitation present. Patient started on anticoagulant along with metoprolol and will follow-up closely with cardiology in one week. Patient also started on antibiotics in the form of ceftriaxone with the possibility of urinary tract infection will continue on oral Ceftin 500 mg twice daily for the next 3 days to complete the course. Currently no reports of chest pain, shortness of breath, or palpitations. Patient is afebrile. No reports of nausea or vomiting and patient is tolerating diet. Patient will be discharged home today. On exam vital signs are stable. Cardio S1, S2 are muffled. Respiratory system shows diminished breath sounds at the bases with no wheezing or rhonchi noted. Abdomen is soft and obese, and nontender. Nervous system shows no focal deficits. Please refer to medication reconciliation sheet for a list of medications. Patient Condition at Discharge: Stable Plan - Discharge Summary Discharge Rx Participant: No New Discharge Prescriptions: New Apixaban [Eliquis] 5 mg PO BID #60 tab Metoprolol Tartrate [Lopressor] 50 mg PO BID 30 Days #60 tab Cefuroxime Axetil [Ceftin] 500 mg PO BID 3 Days #6 tab Continue Aspirin 162 mg PO HS glipiZIDE [Glucotrol] 10 mg PO BID Famotidine [Pepcid] 20 mg PO HS Simvastatin [Zocor] 20 mg PO HS Ertugliflozin Pidolate [Steglatro] 15 mg PO DAILY hydroCHLOROthiazide 25 mg PO DAILY Enalapril [Vasotec] 20 mg PO DAILY Calcium Carbonate/Vitamin D3 [Calcium 600 mg-D3 10 Mcg (400 Iu)] 1 cap PO BID Discharge Medication List Aspirin 162 mg PO HS 12/16/14 [History] Famotidine [Pepcid] 20 mg PO HS 03/07/17 [History] glipiZIDE [Glucotrol] 10 mg PO BID 03/07/17 [History] Calcium Carbonate/Vitamin D3 [Calcium 600 mg-D3 10 Mcg (400 Iu)] 1 cap PO BID 02/18/21 [History] Enalapril [Vasotec] 20 mg PO DAILY 02/18/21 [History] Ertugliflozin Pidolate [Steglatro] 15 mg PO DAILY 02/18/21 [History] Simvastatin [Zocor] 20 mg PO HS 02/18/21 [History] hydroCHLOROthiazide 25 mg PO DAILY 02/18/21 [History] Apixaban [Eliquis] 5 mg PO BID #60 tab 02/19/21 [Rx] Cefuroxime Axetil [Ceftin] 500 mg PO BID 3 Days #6 tab 02/20/21 [Rx] Metoprolol Tartrate [Lopressor] 50 mg PO BID 30 Days #60 tab 02/20/21 [Rx] Follow up Appointment(s)/Referral(s): Nonstaff,Physician [Primary Care Provider] - 1-2 days Bhavesh Diaz MD [STAFF PHYSICIAN] - 1 Week Patient Instructions/Handouts: A-fib (Atrial Fibrillation) (DC) Activity/Diet/Wound Care/Special Instructions: activity limited until follow up follow up with cardiology on discharge follow up primary care provider on discharge take medications as prescribed continue heart healthy diet Discharge Disposition: HOME SELF-CARE
--- NOTE | 2021-02-24 06:31 | CDI ---
Documentation Clarification Form Date: 02/24/21 From: Rupa Caro Admit Date: 02/18/2021 02:17:00 PM Patient Name: Portia Merino Visit Number: [id number] Discharge Date: 02/20/2021 01:43:00 PM ATTENTION: The Clinical Documentation Specialists (CDI) and [facility] Coding Staff appreciate your assistance in clarifying documentation. Please respond to the clarification below the line at the bottom and electronically sign. The CDI & [facility] Coding staff will review the response and follow-up if needed. Please note: Queries are made part of the Legal Health Record. If you have any questions, please contact the author of this message via ITS. Dr. Bhavesh Diaz, Atrial Fibrillation is documented in the ED Note, H&P, your consult, PN's and DS. Additional clarification regarding the type of atrial fibrillation is requested. History/Risk Factors: UTI, morbid obesity w BMI 53.0, DM T 2 w hyperglycemia, HTN w hypertrophy Clinical Indicators: 55-year-old female presenting with palpitations over the past 24 hours. She has no associated chest pain. She has had intermittent palpitations for many years but these are not sustained. EKG/telemetry: Atrial fibrillation with rapid ventricular response, low voltage, rate of 109, QRS duration 90, QTC 457, no ST segment elevation. Treatment: IV Cardizem, Eliquis 5 mg PO BID, Lopressor 50 mg PO BID Please clarify the type of atrial fibrillation, if known: [ ] Chronic [ ] Permanent [ ] Paroxysmal [ x ] Persistent [ ] Other, please specify [ ] Unable to determine MTDD
--- NOTE | 2021-02-24 06:42 | CDI ---
Documentation Clarification Form Date: 02/24/21 From: Rupa Caro Admit Date: 02/18/2021 02:17:00 PM Patient Name: Portia Merino Visit Number: [id number] Discharge Date: 02/20/2021 01:43:00 PM ATTENTION: The Clinical Documentation Specialists (CDI) and [facility] Coding Staff appreciate your assistance in clarifying documentation. Please respond to the clarification below the line at the bottom and electronically sign. The CDI & [facility] Coding staff will review the response and follow-up if needed. Please note: Queries are made part of the Legal Health Record. If you have any questions, please contact the author of this message via ITS. Dr. Mary Paz, Conflicting documentation has been found in the medical record. As attending physician, please provide clarification. Per Cardiology consult "Abnormal troponins, secondary to above, no evidence of acute coronary syndrome". "She has a minimally elevated troponin which is likely from demand at 0.044." Per your DS "Troponin 0.093. Possible acute non-ST segment elevation myocardial infarction, possibly indeterminate" History/Risk Factors: atrial fibrillation, UTI, morbid obesity w BMI 53.0, DM T 2 w hyperglycemia, HTN w hypertrophy Clinical Indicators: No chest pain. Troponin I: 0.044, 0.039 & 1.029 EKG findings by ED physician: Atrial fibrillation with rapid ventricular response, low voltage, rate of 109, QRS duration 90, QTC 457, no ST segment elevation. Treatment: IV Cardizem & IV Heparin Please clarify which diagnosis is most appropriate: [ x ] Minimally elevated troponin [ ] Acute non-ST segment elevation myocardial infarction [ ] Other (please specify) [ ] Unable to determine MTDD
== END 2021-02-20 13:43 | disposition home or self-care (01) | DRG 309 ==
LOC: EC 10:26 → 3SCARD 14:17
PROVIDERS: ADMIT Hospitalist; ATTEND Hospitalist
DX: I48.19 Other persistent atrial fibrillation (principal); Z68.43 Body mass index [BMI] 50.0-59.9, adult; N39.0 Urinary tract infection, site not specified; I11.9 Hypertensive heart disease without heart failure; E11.65 Type 2 diabetes mellitus with hyperglycemia; E66.01 Morbid (severe) obesity due to excess calories; Z20.822 Contact with and (suspected) exposure to COVID-19; I07.1 Rheumatic tricuspid insufficiency; R77.8 Other specified abnormalities of plasma proteins; E78.5 Hyperlipidemia, unspecified; M19.90 Unspecified osteoarthritis, unspecified site; G47.30 Sleep apnea, unspecified; Z79.82 Long term (current) use of aspirin; Z79.84 Long term (current) use of oral hypoglycemic drugs; Z79.899 Other long term (current) drug therapy; Z90.49 Acquired absence of other specified parts of digestive tract; Z87.19 Personal history of other diseases of the digestive system; Z98.51 Tubal ligation status; Z87.891 Personal history of nicotine dependence; Z87.448 Personal history of other diseases of urinary system; Z98.890 Other specified postprocedural states; Z88.5 Allergy status to narcotic agent; Z88.0 Allergy status to penicillin; Z82.49 Family history of ischemic heart disease and other diseases of the circulatory system; Z83.3 Family history of diabetes mellitus; Z83.2 Family history of diseases of the blood and blood-forming organs and certain disorders involving the immune mechanism
CPT/HCPCS: 36415; 71046; 71275; 80053; 81001; 83735; 84443; 84484; 85025; 85379; 85610; 85730; 87635; 93005; 93306; 96374; 96375; 99291

== ENCOUNTER → 2022-03-10 | Outpatient (CLI) | payer OTHER ==
--- NOTE | 2022-03-10 20:37 | CT ---
EXAMINATION TYPE: CT abdomen pelvis wo con CT DLP: 2272.0 mGycm, Automated exposure control for dose reduction was used. DATE OF EXAM: 03/10/2022 5:52 PM COMPARISON: CT abdomen pelvis most recent from 12/24/2014. CLINICAL INDICATION:Female, 56 years old with history of R31.0 GROSS HEMATURIA; GROSS HEMATURIA x6 mo nths TECHNIQUE: Axial CT of the abdomen and pelvis. Sagittal and coronal reformats were created on a [employer] workstation. Contrast used: None Oral contrast used: without Oral Contrast FINDINGS: LOWER CHEST: Unremarkable ABDOMEN LIVER: Unremarkable GALLBLADDER AND BILE DUCTS: The gallbladder is surgically absent. PANCREAS: Unremarkable. SPLEEN: Unremarkable. ADRENAL GLANDS: Unremarkable. KIDNEYS AND URETERS: No evidence of right renal calculus or obstructing uropathy. 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 Left renal staghorn calculus with mild hydronephrosis and peripelvic fat inflammation. There is mild hydronephrosis of a few of the calyces. Mild inflammation along the left ureter. PELVIS BLADDER: Irregular shape to the bladder with REPRODUCTIVE: Unremarkable. ABDOMEN & PELVIS STOMACH AND BOWEL: No evidence of bowel obstruction. Third portion duodenal diverticulum. Scattered c lonic diverticula. PERITONEUM: No evidence of pneumoperitoneum or free fluid. VASCULATURE: No evidence of aortic aneurysm. MUSCULOSKELETAL: No acute osseous abnormalities, multilevel disc degeneration changes throughout the spine. LYMPH NODES: No gross evidence for lymphadenopathy. SOFT TISSUE/ABDOMINAL WALL: Fat-containing ventral wall hernia measuring up to 16 mm at the neck. IMPRESSION: 1. Left renal staghorn calculus with associated renal sinus inflammation concerning for pyelitis/janelle lonephritis. Additionally inflammation along the left ureter likely secondary to ascending infection. No evidence of right hydronephrosis. 2. 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 3. Fat-containing ventral hernia. 4. Colonic diverticulosis.
== END | disposition home or self-care (01) ==
LOC: RADCTMAIN 17:19
PROVIDERS: ATTEND Urology
DX: D17.71 Benign lipomatous neoplasm of kidney (principal); N20.0 Calculus of kidney; K43.9 Ventral hernia without obstruction or gangrene; K57.30 Diverticulosis of large intestine without perforation or abscess without bleeding
CPT/HCPCS: 74176

== ENCOUNTER → 2022-04-13 | Outpatient (CLI) | payer OTHER ==
[2022-04-13 15:19] LABS: Basophils # (A) 0.09 X 10*3/uL (0.00-0.10); Eosinophils # (A) 0.41 X 10*3/uL (0.04-0.35); Eosinophils % (A) 4.7 %; HCT 41.5 % (37.2-46.3); HGB 12.1 g/dL (12.0-15.0); Immature Grans, Automated 0.5 %; Lymphocytes # (A) 1.33 X 10*3/uL (0.90-5.00); Lymphocytes % (A) 15.3 %; MCH 25.6 pg (27.0-32.0); MCHC 29.2 g/dL (32.0-37.0); MCV 87.7 fL (80.0-97.0); Mean Platelet Volume 9.4 fL (9.5-12.2); Monocytes % (A) 9.2 %; NRBC Per 100 WBC 0 /100 WBCS (0.0-0.0); Neutrophils # (A) 6.01 X 10*3/uL (1.80-7.70); Neutrophils % (A) 69.3 %; Platelet Count 350 X 10*3/uL (140-440); RBC 4.73 X 10*6/uL (4.10-5.20); RDW 19.7 % (11.5-14.5); WBC 8.68 X 10*3/uL (4.50-10.00)
[2022-04-13 15:42] LABS: ALT 18 U/L (8-44); AST 15 U/L (13-35); African American GFR (CKD) 81.7 (60.0-200.0); Albumin 4.2 g/dL (3.8-4.9); Alkaline Phosphatase 54 U/L (41-126); BUN/Creat Ratio 22.44 Ratio (12.00-20.00); Blood Urea Nitrogen 20.2 mg/dL (9.0-27.0); Calcium 9.9 mg/dL (8.7-10.3); Carbon Dioxide 26.6 mmol/L (20.0-27.5); Chloride 101 mmol/L (96-109); Glucose 238 mg/dL (70-110); Non-African American GFR(CKD) 70.5 (60.0-200.0); Potassium 4.6 mmol/L (3.5-5.5); Sodium 139 mmol/L (135-145); Total Bilirubin <0.15 mg/dL (0.30-1.20); Total Protein 7.2 g/dL (6.2-8.2)
[2022-04-13 15:59] LABS: Appearance,Urine Cloudy (Clear); Bilirubin,Urine Negative (Negative); Blood,Urine Large (Negative); Color,Urine Yellow (Yellow); Ketones,Urine Negative (Negative); Nitrite,Urine Negative (Negative); Specific Gravity,Urine 1.022 (1.001-1.030); Urobilinogen,Urine 0.2 (0.2,1.0)
[2022-04-13 18:12] LABS: Bacteria,Urine None Seen /HPF (None Seen)
== END | disposition home or self-care (01) ==
LOC: LABPAT 09:18
PROVIDERS: ATTEND Urology
DX: Z01.812 Encounter for preprocedural laboratory examination (principal); N20.0 Calculus of kidney; R31.29 Other microscopic hematuria
CPT/HCPCS: 36415; 80053; 81001; 85025; 87086

== ENCOUNTER 2022-04-19 10:32 | Observation (INO) | payer OTHER ==
[2022-04-14 18:07] VITALS: BMI 52.1
--- NOTE | 2022-04-18 17:29 | P.GSHP ---
History of Present Illness H&P Date: 04/18/22 57 yo w gross hemnaturia. Saw Dr Talbot who evaluated her and identified a greater than 3 cm left partial staghorn calculous. She was referred to me for a left pcnl. This was discussed with me. She has not had alot of utis. I suspect that this isnt an infected stone. Diana to the size and location she comes for a left pcnl. The risks and complications have been discussed. - Constitutional Constitutional: Denies chills, Denies fever - EENT Eyes: denies blurred vision, denies pain Ears, nose, mouth and throat: Denies headache, Denies sore throat - Cardiovascular Cardiovascular: Denies chest pain, Denies shortness of breath - Respiratory Respiratory: Denies cough, Denies 7 - Gastrointestinal Gastrointestinal: Denies abdominal pain, Denies diarrhea, Denies nausea, Denies vomiting - Genitourinary (Female) Genitourinary: Denies dysuria, Denies hematuria - Genitourinary (Male) Genitourinary: Denies dysuria, Denies hematuria - Musculoskeletal Musculoskeletal: Denies myalgias - Integumentary Integumentary: Denies pruritus, Denies rash - Neurological Neurological: Denies numbness, Denies weakness - Psychiatric Psychiatric: Denies anxiety, Denies depression - Endocrine Endocrine: Denies fatigue, Denies weight change Past Medical History Past Medical History: Atrial Fibrillation, Diabetes Mellitus, Hyperlipidemia, Hypertension, Osteoarthritis (OA), Renal Disease, Sleep Apnea/CPAP/BIPAP Additional Past Medical History / Comment(s): kidney stones,uses cpap History of Any Multi-Drug Resistant Organisms: None Reported Past Surgical History: Cholecystectomy, Hernia Repair, Orthopedic Surgery, Tubal Ligation Additional Past Surgical History / Comment(s): FÁTIMA KNEE REPLACEMENT,ABD HERNIA REPAIR,lt knee tendon transfer, kidney bx Past Anesthesia/Blood Transfusion Reactions: Postoperative Nausea & Vomiting (PONV) Additional Past Anesthesia/Blood Transfusion Reaction / Comment(s): SLOW TO WAKE UP FROM ANESTHESIA, STATED "MOM ALMOST AFTER SURGERY-HAD DIFFICULTY WAKING UP" Smoking Status: Former smoker - Past Family History Mother Family Medical History: Chest Pain / Angina, Deep Vein Thrombosis (DVT) Father Family Medical History: Coronary Artery Disease (CAD), Diabetes Mellitus Additional Family Medical History / Comment(s): IN CAR ACCIDENT Medications and Allergies Home Medications Medication Instructions Recorded Confirmed Type Aspirin 162 mg PO HS 12/16/14 04/14/22 History Famotidine [Pepcid] 20 mg PO HS 03/07/17 04/14/22 History glipiZIDE [Glucotrol] 10 mg PO BID 03/07/17 04/14/22 History Calcium Carbonate/Vitamin D3 1 cap PO BID 02/18/21 04/14/22 History [Calcium 600 mg-D3 10 Mcg (400 Iu)] Enalapril [Vasotec] 20 mg PO QAM 02/18/21 04/14/22 History Simvastatin [Zocor] 20 mg PO HS 02/18/21 04/14/22 History hydroCHLOROthiazide 25 mg PO DAILY 02/18/21 04/14/22 History Metoprolol Tartrate [Lopressor] 50 mg PO BID 30 Days #60 tab 02/20/21 04/14/22 Rx Empagliflozin [Jardiance] 25 mg PO DAILY 04/14/22 04/14/22 History Ferrous Sulfate [Feosol] 325 mg PO BID 04/14/22 04/14/22 History Finerenone [Kerendia] 20 mg PO DAILY 04/14/22 04/14/22 History Allergies Allergy/AdvReac Type Severity Reaction Status Date / Time codeine AdvReac Nausea & Verified 04/14/22 17:47 Vomiting,skin flushing Penicillins AdvReac Nausea & Verified 04/14/22 17:47 Vomiting Surgical - Exam - General well developed, well nourished, no distress - Eyes normal ocular movement, no icteric - ENT no hearing loss, no congestion - Neck no masses, trachea midline - Respiratory normal respiratory effort, clear to auscultation - Abdomen Abdomen: soft, non tender, no guarding, no rigid, no rebound - Integumentary no rash, no abnormal pigmentation - Neurologic no disoriented, no combative - Psychiatric oriented to time, oriented to person, oriented to place, speech is normal, memory intact Results - Imaging CT scan - abdomen: report reviewed, image reviewed CT scan - pelvis: report reviewed, image reviewed Assessment and Plan Assessment: ImpressionL Left partial staghorn calculous, large. Multiple medical illnesses outlined in h Plan: pcnl left
[~2022-04-19 10:32] MED LIST: DEXAMETHASONE SOD PHOSPHATE 4 MG/ML 1 ML VIAL IV ONE; GENTAMICIN 120 MG in SODIUM CHLORIDE 0.9% 100 ML IVPB PRN; MIDAZOLAM 2 MG/2 ML VIAL IV PRN; ONDANSETRON 4 MG/2 ML VIAL IVP ONE; SCOPOLAMINE 1 MG/72 HR PATCH TRANSDERM ONE; fentaNYL (PF) 50 MCG/ML 2 ML AMP IV PRN
--- NOTE | 2022-04-19 10:54 | XR ---
EXAMINATION TYPE: XR KUB DATE OF EXAM: 04/19/2022 COMPARISON: NONE HISTORY: Pain TECHNIQUE: One view abdominal series FINDINGS: The osseous structures are intact. The bowel gas pattern is nonspecific. There is a staghorn calculu s on the left measuring 4.4 cm. Surgical clips right upper quadrant. Hypertrophic and degenerative ch anges spine. Arthropathy of the hips. Correlate for femoral acetabular impingement. IMPRESSION: 1. Large left-sided staghorn calculus.
[2022-04-19] MEDS: LACTATED RINGERS 1,000 ML IV SCH (11:37)
[2022-04-19] MEDS ORDERED: LIDOCAINE 1% (10MG/ML) FOR IV START INTRADERMA ONE (11:37)
[2022-04-19 11:54] LABS: Glucose,Whole Blood 108 mg/dL (70-110)
[2022-04-19] MEDS ORDERED: NEOSTIGMINE 1 MG/ML 10 ML VIAL ONE (12:25)
[2022-04-19] MEDS ORDERED: PROPOFOL 10 MG/ML 20 ML VIAL IV ONE (12:25)
[2022-04-19] MEDS ORDERED: KETOROLAC 15 MG/ML 1 ML VIAL ONE (12:25)
[2022-04-19] MEDS ORDERED: LIDOCAINE 2% INJ 20 MG/ML (2 ML VIAL) ONE (12:25)
[2022-04-19] MEDS ORDERED: fentaNYL (PF) 50 MCG/ML 2 ML AMP ONE (12:25)
[2022-04-19] MEDS ORDERED: GLYCOPYRROLATE 0.2 MG/ML 2 ML VIAL ONE (12:25)
[2022-04-19] MEDS ORDERED: MIDAZOLAM 2 MG/2 ML VIAL ONE (12:25)
[2022-04-19] MEDS ORDERED: SUCCINYLCHOLINE CHLORIDE 200 MG/10 ML VIAL IV ONE (12:25)
[2022-04-19] MEDS ORDERED: ROCURONIUM 10 MG/ML (5 ML VIAL) IV ONE (12:25)
[2022-04-19] MEDS ORDERED: ePHEDrine 50 MG/ML 1 ML VIAL ONE (12:25)
[2022-04-19] MEDS ORDERED: IOPAMIDOL-370 50ML BTL IRRIGATION ONE (13:12)
[2022-04-19] MEDS ORDERED: MAG HYDROX/AL HYDROX/SIMETH 30 ML CUP PO PRN (13:54)
[2022-04-19] MEDS ORDERED: HYDROmorphone PCA 10 MG/50 ML BAG IV PRN (13:55)
[2022-04-19] MEDS ORDERED: NALOXONE 0.4 MG/ML 1 ML VIAL IV PRN (13:55)
--- NOTE | 2022-04-19 14:00 | P.OP ---
Date of Procedure: 04/19/22 Preoperative Diagnosis: left staghorn calculous, large,>3cm Postoperative Diagnosis: same Procedure(s) Performed: Cystoscopy, placement of occluding balloon catheter, percutaneous nephrostomy (Dr. davis) percutaneous nephrostolithotomy with ultrasound, placement of 10 J nephrostomy Anesthesia: DELORES Surgeon: Eamon Howell Estimated Blood Loss (ml): 100 Pathology: other (Stone) Condition: stable Disposition: PACU Indications for Procedure: Patient is 57. She has a staghorn calculus in the left kidney, greater than 2 cm. She comes for her cutaneous nephrostolithotomy left. Alternatives have been discussed Description of Procedure: Patient brought to the operating suite. On the transport gurney she's placed in a frog position after been giving a general endotracheal anesthesia. She's prepped and draped sterilely. Cystoscopy Foroblique lens and 21-Afghan sheath identifies chronic cystitis. The left ureteral orifice is identified and intubated with the 5-Afghan occluding balloon catheter. Can only pass the catheter about half way up the left ureter. I removed the inner wire and pass an 025 wire through the catheter up into the renal pelvis and then adjusted catheter and pass more proximally. The wires removed. The ureteral catheter secured to a 16-Afghan Holland catheter Patient is placed in a prone position with care to her airways and extremities. Dr. Davis of radiology performed percutaneous access to the left lower pole calyx. I then dilate the tract to 30-Afghan. Introduced the rigid sheath into the collecting system. The stone was identified. With the ultrasonic wand the stone was broken up and suctioned out. Is a very soft stone consistent with struvite. Remove all the visible stone with either suction from the ultrasound or grasping forceps. I then looked throughout the collecting system and basket one stone fragment. Down the ureter the no remaining stones. I look fluoroscopically and endoscopically and see no remaining stone. A 10 J nephrostomy tubes placed into the left renal pelvis. It is secured to the skin. The patient is awake and returned recovery room good condition. The left ureteral catheter and wires have been removed. Patient will be placed in the hospital postoperatively. Blood loss is approximately 100 mL. Condition is good.
--- NOTE | 2022-04-19 14:16 | FL ---
EXAMINATION TYPE: FL Perc Nephrostomy New Access DATE OF EXAM: 04/19/2022 COMPARISON: NONE HISTORY: Left renal staghorn calculus Procedure had been discussed with the patient by Dr. Howell, risks, benefits, alternatives, were dis cussed and any questions were answered. Informed consent was obtained. The patient was in a semipro ne position prepped and draped on the OR table in the usual sterile fashion. Utilizing a 15 cm lengt h Chiba needle a single pass was made into a lower pole posterior calyx under fluoroscopic guidance. An 0.018 guidewire is passed through the needle and there was placement of a 6-[place] catheter sheat h system. There was conversion to a 0.035 system was performed with passage of a guidewire into the ureter utilizing a directional catheter. A second safety wire was placed. Remaining portion of pro cedure performed by . Approximately 20 minutes and 54 seconds of fluoroscopy was provided. IMPRESSION: 1. Successful intraoperative left nephrostomy prior to nephrolithotomy.
[2022-04-19] MEDS ORDERED: HYDROmorphone 0.5 MG/0.5 ML SYRINGE IVP ONE ×2 (15:20→16:40)
[2022-04-19] MEDS ORDERED: LACTATED RINGERS 1,000 ML IV ONE (16:54)
[2022-04-19] MEDS: glipiZIDE 10 MG TAB PO SCH (19:03)
[2022-04-19 20:39] LABS: Glucose,Whole Blood 251 mg/dL (70-110)
[2022-04-19] MEDS: FAMOTIDINE 20 MG TAB PO SCH (22:17)
[2022-04-19] MEDS: METOPROLOL TARTRATE 50 MG TAB PO SCH (22:17)
[2022-04-19] MEDS: FERROUS SULFATE 325 MG TAB PO SCH (22:17)
[2022-04-20] MEDS: SODIUM CHLORIDE 0.45% 1,000 ML IV SCH ×4 (05:07→16:46)
[2022-04-20 06:25] LABS: Glucose,Whole Blood 152 mg/dL (70-110)
[2022-04-20 08:13] LABS: Glucose,Whole Blood 181 mg/dL (70-110)
[2022-04-20] MEDS: ACETAMINOPHEN TAB 325 MG TAB PO PRN ×3 (08:14→21:20)
[2022-04-20] MEDS: glipiZIDE 10 MG TAB PO SCH ×2 (08:15→18:10)
[2022-04-20] MEDS: ONDANSETRON 4 MG/2 ML VIAL IVP PRN ×2 (08:17→16:55)
--- NOTE | 2022-04-20 08:23 | P.PN ---
Progress Note - Text Progress Note Date: 04/20/22 The patient underwent a left percutaneous nephrolithotomy yesterday. She was afebrile overnight, but this morning was noted to have a temperature of 102F. The patient denies nausea but overall doesn't feel well. The nephrostomy tube is draining bloody urine. The Holland catheter is draining blood-tinged urine. On examination, the abdomen is soft and non-tender. A preoperative urine culture showed Proteus mirabilis. The Holland catheter will be removed, and Levaquin will be started.
[2022-04-20] MEDS: METOPROLOL TARTRATE 50 MG TAB PO SCH ×2 (10:29→21:18)
[2022-04-20] MEDS: hydroCHLOROthiazide 25 MG TAB PO SCH (10:29)
[2022-04-20] MEDS: DAPAGLIFLOZIN PROPANEDIOL 10 MG TABLET PO SCH (10:29)
[2022-04-20] MEDS: lisinopriL 20 MG TAB PO SCH (10:29)
[2022-04-20] MEDS: FERROUS SULFATE 325 MG TAB PO SCH ×2 (10:30→21:18)
[2022-04-20] MEDS: LEVOFLOXACIN 500MG-D5W PMX 500 MG in DEXTROSE/WATER 1 100ML.BAG IVPB SCH (10:30)
[2022-04-20] MEDS: FINERENONE 20 MG PO SCH (10:35)
[2022-04-20 12:10] LABS: Glucose,Whole Blood 128 mg/dL (70-110)
[2022-04-20] MEDS: LACTATED RINGERS 1,000 ML IV SCH (15:07)
[2022-04-20 16:50] LABS: Glucose,Whole Blood 90 mg/dL (70-110)
[2022-04-20 20:59] LABS: Glucose,Whole Blood 196 mg/dL (70-110)
[2022-04-20] MEDS: FAMOTIDINE 20 MG TAB PO SCH (21:18)
[2022-04-21] MEDS: SODIUM CHLORIDE 0.45% 1,000 ML IV SCH ×2 (05:10→15:38)
[2022-04-21 06:17] LABS: Glucose,Whole Blood 140 mg/dL (70-110)
[2022-04-21] MEDS: glipiZIDE 10 MG TAB PO SCH ×2 (06:48→17:09)
[2022-04-21] MEDS: LACTATED RINGERS 1,000 ML IV SCH (07:39)
--- NOTE | 2022-04-21 08:27 | P.PN ---
Progress Note - Text Progress Note Date: 04/21/22 The patient is feeling somewhat better today. Her nausea has resolved, and she tolerated breakfast. She reports mild left flank discomfort. The nephrostomy tube is draining blood-tinged urine. She is voiding without difficulty. She was afebrile throughout the evening yesterday, but her temperature this morning was 101F. In view of this, she will return hospitalized and continue to receive Levaquin.
[2022-04-21] MEDS: ACETAMINOPHEN TAB 325 MG TAB PO PRN ×2 (08:35→20:22)
[2022-04-21] MEDS: LEVOFLOXACIN 500MG-D5W PMX 500 MG in DEXTROSE/WATER 1 100ML.BAG IVPB SCH (08:35)
[2022-04-21] MEDS: FINERENONE 20 MG PO SCH (08:36)
[2022-04-21] MEDS: DAPAGLIFLOZIN PROPANEDIOL 10 MG TABLET PO SCH (08:36)
[2022-04-21] MEDS: FERROUS SULFATE 325 MG TAB PO SCH ×2 (08:36→20:22)
[2022-04-21] MEDS: hydroCHLOROthiazide 25 MG TAB PO SCH (08:36)
[2022-04-21] MEDS: lisinopriL 20 MG TAB PO SCH (08:36)
[2022-04-21] MEDS: METOPROLOL TARTRATE 50 MG TAB PO SCH ×2 (08:36→20:22)
[2022-04-21 11:57] LABS: Glucose,Whole Blood 186 mg/dL (70-110)
[2022-04-21 17:06] LABS: Glucose,Whole Blood 154 mg/dL (70-110)
[2022-04-21] MEDS: FAMOTIDINE 20 MG TAB PO SCH (20:22)
[2022-04-21 21:06] LABS: Glucose,Whole Blood 128 mg/dL (70-110)
[2022-04-22] MEDS: SODIUM CHLORIDE 0.45% 1,000 ML IV SCH ×2 (02:06→11:07)
[2022-04-22] MEDS: glipiZIDE 10 MG TAB PO SCH (05:55)
[2022-04-22 06:14] LABS: Glucose,Whole Blood 113 mg/dL (70-110)
[2022-04-22 07:39] VITALS: BP 111/64; PULSE 67; RESP 18; TEMP 98.9
[2022-04-22] MEDS: FINERENONE 20 MG PO SCH (08:58)
[2022-04-22] MEDS: LEVOFLOXACIN 500MG-D5W PMX 500 MG in DEXTROSE/WATER 1 100ML.BAG IVPB SCH (09:01)
[2022-04-22] MEDS: METOPROLOL TARTRATE 50 MG TAB PO SCH (09:02)
[2022-04-22] MEDS: FERROUS SULFATE 325 MG TAB PO SCH (09:02)
[2022-04-22] MEDS: DAPAGLIFLOZIN PROPANEDIOL 10 MG TABLET PO SCH (09:02)
[2022-04-22] MEDS: lisinopriL 20 MG TAB PO SCH (09:02)
[2022-04-22] MEDS: hydroCHLOROthiazide 25 MG TAB PO SCH (09:02)
--- NOTE | 2022-04-22 12:11 | P.DS ---
Providers Date of admission: 04/20/22 07:21 Expected date of discharge: 04/22/22 Attending physician: Eamon Howell Primary care physician: Verito Pillai DO Hospital Course: On the day of admission, the patient underwent an uncomplicated left PCNL. On the first postoperative day, she experienced a fever. The preoperative urine culture had shown Proteus mirabilis. Levaquin was prescribed, and her condition improved significantly. At the time of discharge, she was afebrile and feeling quite well, with only intermittent mild discomfort. She was voiding without difficulty. The nephrostomy tube was draining pink tinged urine. Procedures: Left percutaneous nephrolithotomy (PCNL) on 04/19/2022 Patient Condition at Discharge: Good Plan - Discharge Summary Discharge Rx Participant: Yes New Discharge Prescriptions: New Levofloxacin [Levaquin] 500 mg PO DAILY 1 Days #7 tab HYDROcodone/APAP 5-325MG [[place] 5-325] 1 - 2 tab PO Q4HR PRN #6 tab PRN Reason: Moderate To Severe Pain (4-10) No Action Aspirin 162 mg PO HS glipiZIDE [Glucotrol] 10 mg PO BID Famotidine [Pepcid] 20 mg PO HS Simvastatin [Zocor] 20 mg PO HS hydroCHLOROthiazide 25 mg PO DAILY Metoprolol Tartrate [Lopressor] 50 mg PO BID 30 Days #60 tab Empagliflozin [Jardiance] 25 mg PO DAILY Ferrous Sulfate [Feosol] 325 mg PO BID Enalapril [Vasotec] 20 mg PO QAM Calcium Carbonate/Vitamin D3 [Calcium 600 mg-D3 10 Mcg (400 Iu)] 1 cap PO BID Finerenone [Kerendia] 20 mg PO DAILY Discharge Medication List Aspirin 162 mg PO HS 12/16/14 [History] Famotidine [Pepcid] 20 mg PO HS 03/07/17 [History] glipiZIDE [Glucotrol] 10 mg PO BID 03/07/17 [History] Calcium Carbonate/Vitamin D3 [Calcium 600 mg-D3 10 Mcg (400 Iu)] 1 cap PO BID 02/18/21 [History] Enalapril [Vasotec] 20 mg PO QAM 02/18/21 [History] Simvastatin [Zocor] 20 mg PO HS 02/18/21 [History] hydroCHLOROthiazide 25 mg PO DAILY 02/18/21 [History] Metoprolol Tartrate [Lopressor] 50 mg PO BID 30 Days #60 tab 02/20/21 [Rx] Empagliflozin [Jardiance] 25 mg PO DAILY 04/14/22 [History] Ferrous Sulfate [Feosol] 325 mg PO BID 04/14/22 [History] Finerenone [Kerendia] 20 mg PO DAILY 04/14/22 [History] HYDROcodone/APAP 5-325MG [[place] 5-325] 1 - 2 tab PO Q4HR PRN #6 tab 04/22/22 [Rx] Levofloxacin [Levaquin] 500 mg PO DAILY 1 Days #7 tab 04/22/22 [Rx] Follow up Appointment(s)/Referral(s): Eamon Howell MD [STAFF PHYSICIAN] - 04/26/22 Patient Instructions/Handouts: Nephrostomy Tube Care (DC) Activity/Diet/Wound Care/Special Instructions: Discharge home with left nephrostomy tube. Empty and record nephrostomy. Record amount, time, date and appearance of output. Bring record to urology appt Discharge Disposition: HOME SELF-CARE
[2022-04-23] MEDS ORDERED: LEVOFLOXACIN 500 MG TAB PO SCH (09:00)
== END 2022-04-22 13:20 | disposition home or self-care (01) ==
LOC: OR 10:32 → 4SSUR 14:00 → OR 04-20 07:21
PROVIDERS: ADMIT Urology; ATTEND Urology
DX: N20.0 Calculus of kidney (principal); N30.20 Other chronic cystitis without hematuria; B96.4 Proteus (mirabilis) (morganii) as the cause of diseases classified elsewhere; I48.91 Unspecified atrial fibrillation; E11.9 Type 2 diabetes mellitus without complications; E78.5 Hyperlipidemia, unspecified; I10 Essential (primary) hypertension; G47.30 Sleep apnea, unspecified; Z96.653 Presence of artificial knee joint, bilateral; Z87.891 Personal history of nicotine dependence; Z79.82 Long term (current) use of aspirin; Z79.84 Long term (current) use of oral hypoglycemic drugs; Z79.899 Other long term (current) drug therapy; Z88.5 Allergy status to narcotic agent; Z88.0 Allergy status to penicillin
CPT/HCPCS: 86900; 86901; 86850; 82365; 50432; 74018; 50081; G0378 ×3; C1769 ×4; C2628; C1894; C1729; J2250; J0330; J1100; J2710; J2405 ×2; J1956 ×3; J3010; J1580; J1885; J2704; J1170 ×2; Q9967; J2001

== ENCOUNTER → 2022-09-17 | Outpatient (CLI) | payer OTHER ==
[2022-09-17 16:48] LABS: Urine Creatinine 71.7 mg/dL (28.0-217.0)
[2022-09-17 17:15] LABS: ALT 28 U/L (8-44); AST 24 U/L (13-35); African American GFR (CKD) 79.2 (60.0-200.0); Albumin 4.5 g/dL (3.8-4.9); Albumin/Globulin Ratio 1.76 (1.60-3.17); Alkaline Phosphatase 62 U/L (41-126); Blood Urea Nitrogen 19.2 mg/dL (9.0-27.0); Calcium 10.1 mg/dL (8.7-10.3); Carbon Dioxide 24.8 mmol/L (20.0-27.5); Chloride 100 mmol/L (96-109); Chol/HDL Ratio 3.15 Ratio; Globulin 2.5 g/dL (1.6-3.3); Glucose 145 mg/dL (70-110); LDL Cholesterol,Calculated 70.1 mg/dL (0.0-131.0); Non-African American GFR(CKD) 68.4 (60.0-200.0); Potassium 4.8 mmol/L (3.5-5.5); Sodium 139 mmol/L (135-145)
== END | disposition home or self-care (01) ==
LOC: LABWHC1 08:23
PROVIDERS: ATTEND Internal Medicine Endocrinology, Diabetes & Metabolism
DX: E11.65 Type 2 diabetes mellitus with hyperglycemia (principal); E78.2 Mixed hyperlipidemia
CPT/HCPCS: 36415; 80053; 80061; 82043; 82570; 83036; 84443

== ENCOUNTER → 2022-10-12 | Outpatient (CLI) | payer OTHER ==
--- NOTE | 2022-10-12 19:11 | BD ---
EXAMINATION TYPE: Axial Bone Density DATE OF EXAM: 10/12/2022 CLINICAL HISTORY: 57 years old Female. ICD-10 CODE: N95.1 POST MENOPAUSAL Height: 61.25 Weight: 269 FRAX RISK QUESTIONS: Family History (Parent hip fracture): no History of Fracture in Adulthood: no Secondary Osteoporosis: yes 3. Menopause before 45: yes , age 41 RISK FACTORS HISTORY OF: Family History of Osteoporosis: yes, mother Active: yes Diet low in dairy products/other sources of calcium: yes Postmenopausal woman: yes ,age 41 Lost more than 2 inches in height since high school: no Frequent falls: no Poor Health: no MEDICATIONS: Additional Medications: yes blood thinner for heart , diabetic med, reflux meds, HBP meds, cholesterol meds, water pill Additional History: yes vit d, calcium EXAM MEASUREMENTS: Bone mineral densitometry was performed using the Sano System. Bone mineral density as measured about the Lumbar spine is: ----- L1-L4(G/cm2): 1.414 T Score Values are as follows: ----- L1: 1.8 ----- L2: 1.7 ----- L3: 1.8 ----- L4: 2.3 ----- L1-L4: 1.9 Z Score Values are as follows: ----- L1: 1.7 ----- L2: 1.6 ----- L3: 1.7 ----- L4: 2.2 ----- L1-L4: 1.9 Bone mineral density has: Increased 4.1% since study of: 10/10/2020 Bone mineral density about the R hip (g/cm2): 1.073 Bone mineral density about the L hip (g/cm2): 1.043 T Score values are as follows: -----R Neck: 0.1 -----L Neck: -0.4 -----R Total: 0.5 -----L Total: 0.3 Z Score values are as follows: -----R Neck: 0.5 -----L Neck: 0.0 -----R Total: 0.5 -----L Total: 0.3 Bone mineral density has: Increased 0.7% since study of: 10/10/2020 FRAX%s: The graph provided illustrates a 5.0% chance for a major osteoporotic fx and a 0.1% chance fo r the hips probability for fx in 10 years time. IMPRESSION: Normal (Values between +1 and -1 indicate normal bone mass). Consider repeating this study in 5 year s or sooner if there is some new clinical indication. NOTE: T-SCORE=SD OF THE YOUNG ADULT MEAN.
--- NOTE | 2022-10-19 10:58 | MM ---
Reason for Exam: Screening (asymptomatic). Last mammogram was performed 1 year(s) and 8 month(s) ago. Patient History: Menarche at age 8. First Full-Term at age 18. Postmenopausal. Risk Values: Zeinab 5 year model risk: 1.1%. NCI Lifetime model risk: 6.1%. Prior Study Comparison: 03/28/2009 Bilateral Screening Mammogram, [facility]. 09/11/2009 Right Diagnostic Mammogram, [facility]. 09/03/2020 Bilateral Screening Mammogram, [facility]. 02/23/2021 Left Diagnostic Mammogram, [facility]. Tissue Density: There are scattered fibroglandular densities. Findings: Analyzed By CAD. There is no suspicious group of microcalcifications or new suspicious mass in either breast. Benign-appearing round calcifications within both breasts. Stable chronic nodularity within the left breast. Overall Assessment: Benign, BI-RAD 2 Management: Screening Mammogram of both breasts in 1 year. A clinical breast exam by your physician is recommended on an annual basis and results should be correlated with mammographic findings. Note on Zeinab scores and lifetime risk: 1. A Zeinab score greater than 3% is considered moderate risk. If this is the case, consider specialist referral to assess eligibility for a risk reducing agent. If overall lifetime risk for the development of breast cancer is 20% or higher, the patient may qualify for future screening with alternating mammogram and breast MRI. Electronically signed and approved by: Johny Viera D.O.
== END | disposition home or self-care (01) ==
LOC: RADMAMWWP 06:53
PROVIDERS: ATTEND Obstetrics & Gynecology
DX: Z12.31 Encounter for screening mammogram for malignant neoplasm of breast (principal); M85.852 Other specified disorders of bone density and structure, left thigh; Z78.0 Asymptomatic menopausal state
CPT/HCPCS: 77063; 77067; 77080

== ENCOUNTER → 2022-10-12 | Outpatient (CLI) | payer OTHER ==
--- NOTE | 2022-10-12 15:20 | US ---
EXAMINATION TYPE: US kidneys/renal and bladder DATE OF EXAM: 10/12/2022 COMPARISON: Correlation CT 03/10/2022 and 12/24/2014 CLINICAL INDICATION: Female, 57 years old with history of Z87.442 HX KIDNEY STONES; Hx of left renal stone with gross hematuria, surgical removal. Hx of right angiomyolipoma . EXAM MEASUREMENTS: Right Kidney: 12.6 x 5.2 x 5.6 cm Left Kidney: 11.4 x 4.9 x 5.9 cm Post Void Residual Volume: 6.9 mL Right Kidney: Lateral lower pole echogenic round lesion, nonvascular = 1.8 x 1.6 x 1.5 cm. This measu red 1.1 cm on 12/24/2014 and 1.5 cm on 03/10/2022. No hydronephrosis. Left Kidney: There is mild left-sided hydronephrosis. Bladder: distended, anechoic Bilateral Jets not seen Normal Post Void Residual IMPRESSION: 1. 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 This measured 1.5 cm on 2021 and 1.1 cm on 12/24/2014. Consider ongoing surveillance follow-up. 2. Mild left-sided hydronephrosis. Clinically correlate.
== END | disposition home or self-care (01) ==
LOC: RADUSWWP 06:55
PROVIDERS: ATTEND Internal Medicine Nephrology
DX: C92.00 Acute myeloblastic leukemia, not having achieved remission (principal); N13.30 Unspecified hydronephrosis; Z87.442 Personal history of urinary calculi
CPT/HCPCS: 76770

== ENCOUNTER 2022-12-22 19:16 | Observation (INO) | payer OTHER ==
[2022-12-22] MEDS ORDERED: SODIUM CHLORIDE 0.9% 1,000 ML IV STA (20:23)
[2022-12-22] MEDS ORDERED: MECLIZINE 12.5 MG TAB PO STA (20:24)
[2022-12-22] MEDS ORDERED: ONDANSETRON 4 MG/2 ML VIAL IVP STA (20:24)
[2022-12-22] MEDS ORDERED: diphenhydrAMINE 50 MG/ML 1 ML VIAL IVP STA (20:24)
--- NOTE | 2022-12-22 20:24 | ED ---
Dizziness HPI <Bharath Valero - Last Filed: 12/22/22 22:43> - General Source: patient, RN notes reviewed, old records reviewed Mode of arrival: wheelchair Limitations: no limitations - History of Present Illness MD Complaint: dizziness, lightheadedness -: hour(s) Description: "room spinning", lightheadedness History of Same: Yes History of Trauma: Yes Severity: mild Improves With: remaining still Worsens With: nothing Associated Symptoms: denies other symptoms, ataxia, weakness <Silvio Eubanks - Last Filed: 12/29/22 23:13> - General Chief Complaint: Dizziness Stated Complaint: Dizziness,Nausea-sent from [facility] Time Seen by Provider: 12/22/22 20:09 - History of Present Illness Initial Comments: This is a 57-year-old female to the ER today. Patient presents today for evaluation regards to dizziness severe dizziness lightheadedness weakness d ifficulty with ambulation room does not appear to be spitting the patient states she herself appears to be sitting she feels like she may pass out without headache chest pain shortness of breath or abdominal pain (Silvio Eubanks) - Related Data Home Medications Medication Instructions Recorded Confirmed Aspirin 162 mg PO HS 12/16/14 12/22/22 Famotidine [Pepcid] 20 mg PO HS 03/07/17 12/22/22 Calcium Carbonate/Vitamin D3 1 cap PO BID 02/18/21 12/22/22 [Calcium 600 mg-D3 10 Mcg (400 Iu)] hydroCHLOROthiazide 25 mg PO DAILY 02/18/21 12/22/22 Empagliflozin [Jardiance] 25 mg PO DAILY 04/14/22 12/22/22 Ferrous Sulfate [Iron (65 MG 325 mg PO BID 04/14/22 12/22/22 Elemental)] Finerenone [Kerendia] 20 mg PO DAILY 04/14/22 12/22/22 Apixaban [Eliquis] 5 mg PO BID 12/22/22 12/22/22 Dulaglutide [Trulicity] 1.5 mg SQ SA 12/22/22 12/22/22 Metoprolol Succinate (ER) [Toprol 50 mg PO DAILY 12/22/22 12/22/22 XL] Simvastatin [Zocor] 40 mg PO HS 12/22/22 12/22/22 lisinopriL [Zestril] 10 mg PO DAILY 12/22/22 12/22/22 Previous Rx's Medication Instructions Recorded Meclizine [Antivert] 25 mg PO QID #100 tab 12/24/22 metFORMIN HCL ER [Glucophage XR] 500 mg PO BID #60 tab 12/24/22 Allergies Allergy/AdvReac Type Severity Reaction Status Date / Time codeine AdvReac Nausea & Verified 12/22/22 21:20 Vomiting,skin flushing Penicillins AdvReac Nausea & Verified 12/22/22 21:20 Vomiting Review of Systems ROS Other: All systems not noted in ROS Statement are negative. <Bharath Valero - Last Filed: 12/22/22 22:43> ROS Other: All systems not noted in ROS Statement are negative. <Silvio Eubanks - Last Filed: 12/29/22 23:13> ROS Statement: Those systems with pertinent positive or pertinent negative responses have been documented in the HPI. Past Medical History Past Medical History: Diabetes Mellitus, Hyperlipidemia, Hypertension, Osteoarthritis (OA), Renal Disease, Sleep Apnea/CPAP/BIPAP Additional Past Medical History / Comment(s): PAIN TO STOMACH AFTER EATING History of Any Multi-Drug Resistant Organisms: None Reported Past Surgical History: Cholecystectomy, Hernia Repair, Orthopedic Surgery, Tubal Ligation Additional Past Surgical History / Comment(s): FÁTIMA KNEE REPLACEMENT,ABD HERNIA REPAIR,lt knee tendon transfer, kidney bIopsy Past Anesthesia/Blood Transfusion Reactions: Postoperative Nausea & Vomiting (PO NV) Additional Past Anesthesia/Blood Transfusion Reaction / Comment(s): SLOW TO WAKE UP FROM ANESTHESIA, STATED "MOM ALMOST AFTER SURGERY-HAD DIFFICULTY WAKING UP" Past Psychological History: No Psychological Hx Reported Smoking Status: Former smoker Past Alcohol Use History: Occasional Past Drug Use History: None Reported - Past Family History Mother Family Medical History: Chest Pain / Angina, Deep Vein Thrombosis (DVT) Father Family Medical History: Coronary Artery Disease (CAD), Diabetes Mellitus Additional Family Medical History / Comment(s): IN CAR ACCIDENT <Silvio Eubanks - Last Filed: 12/29/22 23:13> General Exam Limitations: no limitations General appearance: alert, in no apparent distress Head exam: Present: atraumatic, normocephalic, normal inspection Eye exam: Present: normal appearance, PERRL, EOMI. Absent: scleral icterus, conjunctival injection, periorbital swelling ENT exam: Present: normal exam, mucous membranes moist Neck exam: Present: normal inspection. Absent: tenderness, meningismus, lymphadenopathy Respiratory exam: Present: normal lung sounds bilaterally. Absent: respiratory distress, wheezes, rales, rhonchi, stridor Cardiovascular Exam: Present: regular rate, normal rhythm, normal heart sounds. Absent: systolic murmur, diastolic murmur, rubs, gallop, clicks GI/Abdominal exam: Present: soft, normal bowel sounds. Absent: distended, tenderness, guarding, rebound, rigid Extremities exam: Present: normal inspection, full ROM, normal capillary refill. Absent: tenderness, pedal edema, joint swelling, calf tenderness Back exam: Present: normal inspection Neurological exam: Present: alert, oriented X3, CN II-XII intact Psychiatric exam: Present: normal affect, normal mood Skin exam: Present: warm, dry, intact, normal color. Absent: rash <Silvio Eubanks B - Last Filed: 12/29/22 23:13> Course <Silvio Eubanks B - Last Filed: 12/29/22 23:13> Vital Signs 12/22/22 12/22/22 12/23/22 19:32 21:36 00:42 Temperature 98.3 F 97.3 F L Pulse Rate 74 62 68 Pulse Rate [ Senior Quality Engineer ] Pulse Rate [ Sitting] Pulse Rate [ Standing] Pulse Rate [ Supine] Respiratory 20 16 15 Rate Blood Pressure 114/71 120/61 113/62 Blood Pressure [Left Arm Sitting] Blood Pressure [Left Arm Standing] Blood Pressure [Left Arm Supine] Blood Pressure [Left Arm] O2 Sat by Pulse 96 97 96 Oximetry 12/23/22 12/23/22 12/23/22 06:30 07:45 11:25 Temperature 98.2 F 98.0 F Pulse Rate 83 Pulse Rate [ 61 65 Senior Quality Engineer ] Pulse Rate [ 64 Sitting] Pulse Rate [ 78 Standing] Pulse Rate [ 65 Supine] Respiratory 18 16 16 Rate Blood Pressure 183/93 Blood Pressure 118/61 [Left Arm Sitting] Blood Pressure 119/67 [Left Arm Standing] Blood Pressure 112/67 [Left Arm Supine] Blood Pressure 115/73 112/67 [Left Arm] O2 Sat by Pulse 94 L 94 L 94 L Oximetry 12/23/22 12/23/22 12/24/22 15:35 20:00 00:00 Temperature 99.1 F Pulse Rate 69 72 Pulse Rate [ Senior Quality Engineer ] Pulse Rate [ Sitting] Pulse Rate [ Standing] Pulse Rate [ 62 Supine] Respiratory 16 18 16 Rate Blood Pressure 110/64 Blood Pressure [Left Arm Sitting] Blood Pressure [Left Arm Standing] Blood Pressure 109/67 [Left Arm Supine] Blood Pressure [Left Arm] O2 Sat by Pulse 99 95 98 Oximetry 12/24/22 12/24/22 12/24/22 02:00 07:19 08:20 Temperature 97.5 F L Pulse Rate 66 67 Pulse Rate [ Senior Quality Engineer ] Pulse Rate [ Sitting] Pulse Rate [ Standing] Pulse Rate [ Supine] Respiratory 15 18 18 Rate Blood Pressure 123/43 125/62 Blood Pressure [Left Arm Sitting] Blood Pressure [Left Arm Standing] Blood Pressure [Left Arm Supine] Blood Pressure [Left Arm] O2 Sat by Pulse 98 96 Oximetry 12/24/22 17:01 Temperature 97.7 F Pulse Rate 70 Pulse Rate [ Senior Quality Engineer ] Pulse Rate [ Sitting] Pulse Rate [ Standing] Pulse Rate [ Supine] Respiratory 18 Rate Blood Pressure 126/70 Blood Pressure [Left Arm Sitting] Blood Pressure [Left Arm Standing] Blood Pressure [Left Arm Supine] Blood Pressure [Left Arm] O2 Sat by Pulse 98 Oximetry - Reevaluation(s) Reevaluation #1: 12/22/22 20:33 Medical record is reviewed (Silvio Eubanks) Reevaluation #2: Patient symptoms are relatively unchanged (Silvio Eubanks) Reevaluation #3: Patient informed results questions answered (Silvio Eubanks) Reevaluation #5: Differential Dizziness: Benign paroxysmal positional Vertigo, Menieres disease, otitis media, acoustic neuroma, vertebrobasilar insufficiency, cerebellar stroke, encephalitis, hypovolemic, arrhythmia, coronary artery syndrome, anemia, this is not meant to be an all-inclusive list (Silvio Eubanks) EKG Findings - EKG Comments: EKG Findings:: EKG is sinus rhythm rate of 68, VA 195 QRS 152 QTC 395 - EKG Results: EKG: interpreted by ERMD <Silvio Eubanks - Last Filed: 12/29/22 23:13> Medical Decision Making - Lab Data Result diagrams: 12/22/22 20:53 12/22/22 20:53 <Bharath Valero - Last Filed: 12/22/22 22:43> - Lab Data Result diagrams: 12/24/22 09:26 12/24/22 09:26 - EKG Data -: EKG Interpreted by Me - Radiology Data Radiology results: report reviewed (CT brain is negative for acute disease), image reviewed <Silvio Eubanks - Last Filed: 12/29/22 23:13> - Medical Decision Making The patient was signed out to me from Dr. Eubanks. The patient was signed out pending reevaluation as well as computed tomography scan for further evaluation. Was pt. sent in by a medical professional or institution (, PA, GLOST [employer]ACER, urgent care, hospital, or longterm...) When possible be specific @ -No Did you speak to anyone other than the patient for history (EMS, parent, family, police, friend...)? What history was obtained from this source @ -No Did you review nursing and triage notes (agree or disagree)? Why? @ -I reviewed and agree with nursing and triage notes Were old charts reviewed (outside hosp., previous admission, EMS record, old EKG, old radiological studies, urgent care reports/EKG's, longterm records)? Report findings @ -No old charts were reviewed Differential Diagnosis (chest pain, altered mental status, abdominal pain women, abdominal pain men, vaginal bleeding, weakness, fever, dyspnea, syncope, headache, dizziness, GI bleed, back pain, seizure, CVA, palpatations, mental health)? @ -Benign positional vertigo, posterior CVA, dehydration EKG interpreted by me (3pts min.). @ -As above X-rays interpreted by me (1pt min.). @ -None done CT interpreted by me (1pt min.). @ -Computed tomography scan of the head was obtained and was interpreted by myself showing no acute process. U/S interpreted by me (1pt. min.). @ -None done What testing was considered but not performed or refused? (CT, X-rays, U/S, labs)? Why? @ -None What meds were considered but not given or refused? Why? @ -None Did you discuss the management of the patient with other professionals (professionals i.e. Dr., PA, GLO[employer] PLACER, lab, RT, psych nurse, social science professor, cleaner and preparer, teacher, strike warfare/missile systems officer, case consultant)? Give summary @ -Yes, admitting physician was contacted regarding placing the patient observation to be seen by neurology. Was smoking cessation discussed for >3mins.? @ -No Was critical care preformed (if so, how long)? @ -No Were there social determinants of health that impacted care today? How? (Homelessness, low income, unemployed, alcoholism, drug addiction, transportation, low edu. Level, literacy, decrease access to med. care, detention, rehab)? @ -No Was there de-escalation of care discussed even if they declined (Discuss DNR or withdrawal of care, Hospice)? DNR status @ -No What co-morbidities impacted this encounter? (DM, HTN, Smoking, COPD, CAD, Cancer, CVA, ARF, Chemo, Hep., AIDS, mental health diagnosis, sleep apnea, morbid obesity)? @ -Atrial fibrillation Was patient admitted / discharged? Hospital course, mention meds given and route, prescriptions, significant lab abnormalities, going to OR and other pertinent info. @ -The patient was initially seen by Dr. Eubanks. The patient was signed out to me pending reevaluation as well as completion of the computed tomography scan. Computed tomography scan was negative as well as all laboratory workup. The patient had been given medications however on reevaluation had persistent abnormal gait and room spinning. Due to the patient's persistent vertigo de spite medication as well as a negative workup, the patient will be placed in observation to be seen by neurology for MRI evaluation to rule out a posterior CVA. The patient was told of this plan and was agreeable. The patient was placed in observation in stable condition. Undiagnosed new problem with uncertain prognosis? @ -No Drug Therapy requiring intensive monitoring for toxicity (Heparin, Nitro, Insulin, Cardizem)? @ -No Were any procedures done? @ -No Diagnosis/symptom? @ -Persistent dizziness, vertigo Acute, or Chronic, or Acute on Chronic? @ -Acute Uncomplicated (without systemic symptoms) or Complicated (systemic symptoms)? @ -Complicated Side effects of treatment? @ -No Exacerbation, Progression, or Severe Exacerbation? @ -No Poses a threat to life or bodily function? How? (Chest pain, USA, MT, pneumonia, PE, COPD, DKA, ARF, appy, cholecystitis, CVA, Diverticulitis, Homicidal, Suicidal, threat to staff... and all critical care pts) @ -Yes, continued persistent dizziness and vertigo can lead to multiple falls, permanent damage and possible . (Bharath Valero) 57 female seen and evaluated for evaluation regards to dizziness with vertiginous symptoms. (Silvio Eubanks) - Lab Data Lab Results 12/22/22 12/22/22 12/22/22 Range/Units 20:53 20:53 20:53 WBC 12.7 H (3.8-10.6) k/uL RBC 4.64 (3.80-5.40) m/uL Hgb 14.3 (11.4-16.0) gm/dL Hct 43.3 (34.0-46.0) % MCV 93.3 (80.0-100.0) fL MCH 30.9 (25.0-35.0) pg MCHC 33.1 (31.0-37.0) g/dL RDW 13.5 (11.5-15.5) % Plt Count 305 (150-450) k/uL MPV 7.1 Neutrophils % 71 % Lymphocytes % 18 % Monocytes % 4 % Eosinophils % 5 % Basophils % 1 % Neutrophils # 9.1 H (1.3-7.7) k/uL Lymphocytes # 2.3 (1.0-4.8) k/uL Monocytes # 0.5 (0-1.0) k/uL Eosinophils # 0.6 (0-0.7) k/uL Basophils # 0.1 (0-0.2) k/uL PT 10.3 (9.0-12.0) sec INR 1.0 (<1.2) APTT 23.4 (22.0-30.0) sec Sodium 136 L (137-145) mmol/L Potassium 4.5 (3.5-5.1) mmol/L Chloride 97 L (98-107) mmol/L Carbon Dioxide 27 (22-30) mmol/L Anion Gap 12 mmol/L BUN 24 H (7-17) mg/dL Creatinine 0.75 (0.52-1.04) mg/dL Est GFR (CKD-EPI)AfAm >90 (>60 ml/min/1.73 sqM) Est GFR (CKD-EPI)NonAf 88 (>60 ml/min/1.73 sqM) Glucose 253 H (74-99) mg/dL Calcium 9.8 (8.4-10.2) mg/dL Phosphorus 5.1 H (2.5-4.5) mg/dL Magnesium 2.0 (1.6-2.3) mg/dL Total Bilirubin 0.4 (0.2-1.3) mg/dL AST 23 (14-36) U/L ALT 21 (4-34) U/L Alkaline Phosphatase 60 (38-126) U/L Troponin I (0.000-0.034) ng/mL NT-Pro-B Natriuret Pep 26 pg/mL Total Protein 7.0 (6.3-8.2) g/dL Albumin 4.1 (3.5-5.0) g/dL 12/22/22 Range/Units 20:53 WBC (3.8-10.6) k/uL RBC (3.80-5.40) m/uL Hgb (11.4-16.0) gm/dL Hct (34.0-46.0) % MCV (80.0-100.0) fL MCH (25.0-35.0) pg MCHC (31.0-37.0) g/dL RDW (11.5-15.5) % Plt Count (150-450) k/uL MPV Neutrophils % % Lymphocytes % % Monocytes % % Eosinophils % % Basophils % % Neutrophils # (1.3-7.7) k/uL Lymphocytes # (1.0-4.8) k/uL Monocytes # (0-1.0) k/uL Eosinophils # (0-0.7) k/uL Basophils # (0-0.2) k/uL PT (9.0-12.0) sec INR (<1.2) APTT (22.0-30.0) sec Sodium (137-145) mmol/L Potassium (3.5-5.1) mmol/L Chloride (98-107) mmol/L Carbon Dioxide (22-30) mmol/L Anion Gap mmol/L BUN (7-17) mg/dL Creatinine (0.52-1.04) mg/dL Est GFR (CKD-EPI)AfAm (>60 ml/min/1.73 sqM) Est GFR (CKD-EPI)NonAf (>60 ml/min/1.73 sqM) Glucose (74-99) mg/dL Calcium (8.4-10.2) mg/dL Phosphorus (2.5-4.5) mg/dL Magnesium (1.6-2.3) mg/dL Total Bilirubin (0.2-1.3) mg/dL AST (14-36) U/L ALT (4-34) U/L Alkaline Phosphatase (38-126) U/L Troponin I <0.012 (0.000-0.034) ng/mL NT-Pro-B Natriuret Pep pg/mL Total Protein (6.3-8.2) g/dL Albumin (3.5-5.0) g/dL Disposition Is patient prescribed a controlled substance at d/c from ED?: No Time of Disposition: 22:30 Decision to Admit Reason: Admit from EC Decision Date: 12/22/22 Decision Time: 22:30 <Bharath Valero - Last Filed: 12/22/22 22:43> <Silvio Eubanks - Last Filed: 12/29/22 23:13> Clinical Impression: Dizziness, Vertigo Disposition: ADMITTED IP TO THIS HOSP Condition: Stable
[2022-12-22 21:26] LABS: ALT 21 U/L (4-34); AST 23 U/L (14-36); African American GFR (CKD) >90 (>60 ml/min/1.73 sqM); Albumin 4.1 g/dL (3.5-5.0); Alkaline Phosphatase 60 U/L (38-126); Anion Gap 12 mmol/L; Blood Urea Nitrogen 24 mg/dL (7-17); Calcium 9.8 mg/dL (8.4-10.2); Carbon Dioxide 27 mmol/L (22-30); Chloride 97 mmol/L (98-107); Glucose 253 mg/dL (74-99); Non-African American GFR(CKD) 88 (>60 ml/min/1.73 sqM); Phosphorus 5.1 mg/dL (2.5-4.5); Potassium 4.5 mmol/L (3.5-5.1); Sodium 136 mmol/L (137-145); Total Bilirubin 0.4 mg/dL (0.2-1.3)
[2022-12-22 21:32] LABS: Partial Thromboplastin Time 23.4 sec (22.0-30.0); Prothrombin Time 10.3 sec (9.0-12.0)
[2022-12-22 21:34] LABS: NT-Pro-B-Type Natriuretic Pept 26 pg/mL
[2022-12-22 21:39] LABS: Basophils # (A) 0.1 k/uL (0-0.2); Basophils % (A) 1 %; Eosinophils # (A) 0.6 k/uL (0-0.7); Eosinophils % (A) 5 %; HCT 43.3 % (34.0-46.0); HGB 14.3 gm/dL (11.4-16.0); Lymphocytes # (A) 2.3 k/uL (1.0-4.8); Lymphocytes % (A) 18 %; MCH 30.9 pg (25.0-35.0); MCHC 33.1 g/dL (31.0-37.0); MCV 93.3 fL (80.0-100.0); Mean Platelet Volume 7.1; Monocytes # (A) 0.5 k/uL (0-1.0); Monocytes % (A) 4 %; Neutrophils # (A) 9.1 k/uL (1.3-7.7); Neutrophils % (A) 71 %; Platelet Count 305 k/uL (150-450); RBC 4.64 m/uL (3.80-5.40); RDW 13.5 % (11.5-15.5); WBC 12.7 k/uL (3.8-10.6)
--- NOTE | 2022-12-22 22:09 | CT ---
EXAMINATION TYPE: CT brain wo con DATE OF EXAM: 12/22/2022 COMPARISON: 03/07/2017 INDICATION: nausea and dizziness DLP: 1203.4 mGycm, Automated exposure control for dose reduction was used. CONTRAST: None CT of the brain is performed utilizing 3 mm thick sections through the posterior fossa and 3 mm thick sections through the remaining calvarium. Study is performed within 24 hours of arrival to the hosp ital. No abnormal hyperdensity is present to suggest an acute intracranial hemorrhage. No mass lesion is evident. No acute infarcts are evident. Ventricles and sulci are appropriate for the patient age. Paranasal sinuses and mastoid air cells within the [id number] are clear. IMPRESSIONS: 1. No acute intracranial process. MRI can be performed as clinically indicated.
[2022-12-22] MEDS ORDERED: NALOXONE 0.4 MG/ML 1 ML VIAL IV PRN (22:47)
[2022-12-23 05:46] LABS: Glucose,Whole Blood 104 mg/dL (70-110)
--- NOTE | 2022-12-23 07:52 | P.HPIM ---
History of Present Illness This is a pleasant 57 years old female with past medical history of Diabetes Mellitus, Hyperlipidemia, Hypertension, Osteoarthritis (OA), Renal Disease, Sleep Apnea/CPAP/BIPAP Her PCP is Dr. Arriola from [facility] through telemetry medicine pt c/o dizziness and nausea x 3 days. Patient denies vomiting and her nausea is gone now but still has dizziness. Her dizziness comes and goes. It was half day 2 days ago but the whole day yesterday so she came to the hospital She describes the dizziness as pressure on the top of her head at feels foggy and dizzy, patient feels herself is spinning of the room and as if she is going to pass out but she did not pass out. She denies any abdominal pain or diarrhea. No urinary complaints. No chest pain or dyspnea. She has some blurred vision when dizziness comes but currently she doesn't have any blurred vision. She denies headache weakness or numbness. She denies smoking alcohol or illicit drugs She has chronic ringing in both ears for many years with no recent worsening. she sees Dr. Diaz for A. fib Also she sees Dr. Nazario for her diabetes, Review of Systems Review of systems CONSTITUTIONAL: No fever, no malaise, no fatigue. HEENT: No recent visual problems or hearing problems. Denied any sore throat. CARDIOVASCULAR: No orthopnea, PND, no palpitations, no syncope. PULMONARY: No shortness of breath, no cough, no hemoptysis. GASTROINTESTINAL: No diarrhea, no nausea, no vomiting, no abdominal pain. Normoactive bowel sounds. NEUROLOGICAL: No headaches, no weakness, no numbness. HEMATOLOGICAL: Denies any bleeding or petechiae. GENITOURINARY: Denies any burning micturition, frequency, or urgency. MUSCULOSKELETAL/RHEUMATOLOGICAL: Denies any joint pain, swelling, or any muscle pain. ENDOCRINE: Denies any polyuria or polydipsia. Past Medical History Past Medical History: Diabetes Mellitus, Hyperlipidemia, Hypertension, Osteoarthritis (OA), Renal Disease, Sleep Apnea/CPAP/BIPAP Additional Past Medical History / Comment(s): PAIN TO STOMACH AFTER EATING History of Any Multi-Drug Resistant Organisms: None Reported Past Surgical History: Cholecystectomy, Hernia Repair, Orthopedic Surgery, Tubal Ligation Additional Past Surgical History / Comment(s): FÁTIMA KNEE REPLACEMENT,ABD HERNIA REPAIR,lt knee tendon transfer, kidney bIopsy Past Anesthesia/Blood Transfusion Reactions: Postoperative Nausea & Vomiting (PONV) Additional Past Anesthesia/Blood Transfusion Reaction / Comment(s): SLOW TO WAKE UP FROM ANESTHESIA, STATED "MOM ALMOST AFTER SURGERY-HAD DIFFICULTY WAKING UP" Past Psychological History: No Psychological Hx Reported Smoking Status: Former smoker Past Alcohol Use History: Occasional Past Drug Use History: None Reported - Past Family History Mother Family Medical History: Chest Pain / Angina, Deep Vein Thrombosis (DVT) Father Family Medical History: Coronary Artery Disease (CAD), Diabetes Mellitus Additional Family Medical History / Comment(s): IN CAR ACCIDENT Medications and Allergies Home Medications Medication Instructions Recorded Confirmed Type Aspirin 162 mg PO HS 12/16/14 12/22/22 History Famotidine [Pepcid] 20 mg PO HS 03/07/17 12/22/22 History Calcium Carbonate/Vitamin D3 1 cap PO BID 02/18/21 12/22/22 History [Calcium 600 mg-D3 10 Mcg (400 Iu)] hydroCHLOROthiazide 25 mg PO DAILY 02/18/21 12/22/22 History Empagliflozin [Jardiance] 25 mg PO DAILY 04/14/22 12/22/22 History Ferrous Sulfate [Feosol] 325 mg PO BID 04/14/22 12/22/22 History Finerenone [Kerendia] 20 mg PO DAILY 04/14/22 12/22/22 History Apixaban [Eliquis] 5 mg PO BID 12/22/22 12/22/22 History Dulaglutide [Trulicity] 1.5 mg SQ SA 12/22/22 12/22/22 History Metoprolol Succinate (ER) [Toprol 50 mg PO DAILY 12/22/22 12/22/22 History Xl] Simvastatin [Zocor] 40 mg PO HS 12/22/22 12/22/22 History lisinopriL [Zestril] 10 mg PO DAILY 12/22/22 12/22/22 History metFORMIN HCL ER [Glucophage XR] 500 mg PO DAILY 12/22/22 12/22/22 History Allergies Allergy/AdvReac Type Severity Reaction Status Date / Time codeine AdvReac Nausea & Verified 12/22/22 21:20 Vomiting,skin flushing Penicillins AdvReac Nausea & Verified 12/22/22 21:20 Vomiting Physical Exam Vitals: Vital Signs Temp Pulse Resp BP Pulse Ox 12/23/22 06:30 98.2 F 83 18 183/93 94 L 12/23/22 00:42 97.3 F L 68 15 113/62 96 12/22/22 21:36 62 16 120/61 97 12/22/22 19:32 98.3 F 74 20 114/71 96 Intake and Output 12/22/22 12/23/22 12/23/22 22:59 06:59 14:59 Other: Weight 117.934 kg -GENERAL: The patient is alert and oriented x3, not in any acute distress. Well obese HEENT: Pupils are round and equally reacting to light. EOMI. No scleral icterus. No conjunctival pallor. Normocephalic, atraumatic. No pharyngeal erythema. No thyromegaly. CARDIOVASCULAR: S1 and S2 present. No murmurs, rubs, or gallops. PULMONARY: Chest is clear to auscultation, no wheezing , no crackles. ABDOMEN: Soft, nontender, nondistended, normoactive bowel sounds. No palpable organomegaly. MUSCULOSKELETAL: No joint swelling or deformity. EXTREMITIES: No cyanosis, clubbing, or pedal edema. NEUROLOGICAL: Gross neurological examination did not reveal any focal deficits. SKIN: No rashes. no petechiae. Results CBC & Chem 7: 12/22/22 20:53 12/22/22 20:53 Labs: Abnormal Lab Results - Last 24 Hours (Table) 12/22/22 12/22/22 Range/Units 20:53 20:53 WBC 12.7 H (3.8-10.6) k/uL Neutrophils # 9.1 H (1.3-7.7) k/uL Sodium 136 L (137-145) mmol/L Chloride 97 L (98-107) mmol/L BUN 24 H (7-17) mg/dL Glucose 253 H (74-99) mg/dL Phosphorus 5.1 H (2.5-4.5) mg/dL Assessment and Plan Assessment: Dizziness, suspicious for presyncope Diabetes mellitus with hyperglycemia Paroxysmal atrial fibrillation on Eliquis dehydration Dehydration Hypertension Hyperlipidemia History of osteoarthritis Hypothyroidism Morbidly obese history of kidney stone and she follow up with Dr. olivera Plan: Continue with IV fluid Check orthostatic vitals Neurology consult Cardiology consult Follow-up with ENT as an outpatient for her chronic ringing in her ears Labs and medication were reviewed.. Continue same treatment. Continue with symptomatic treatment. Resume home medication. Monitor lytes and vitals. DVT and GI prophylaxis. Further recommendations depends on the clinical course of the patient DVT prophylaxis: Eliquis GI Prophylaxis: Pepcid PT/OT: Pending Prognosis is guarded
[2022-12-23 07:59] LABS: Basophils # (A) 0.1 k/uL (0-0.2); Basophils % (A) 1 %; Eosinophils # (A) 0.6 k/uL (0-0.7); Eosinophils % (A) 6 %; HCT 40.6 % (34.0-46.0); HGB 13.6 gm/dL (11.4-16.0); Lymphocytes # (A) 2.4 k/uL (1.0-4.8); Lymphocytes % (A) 22 %; MCHC 33.3 g/dL (31.0-37.0); MCV 92.9 fL (80.0-100.0); Monocytes # (A) 0.6 k/uL (0-1.0); Monocytes % (A) 6 %; Neutrophils # (A) 7.2 k/uL (1.3-7.7); Neutrophils % (A) 65 %; Platelet Count 284 k/uL (150-450); RBC 4.38 m/uL (3.80-5.40); RDW 13.6 % (11.5-15.5)
[2022-12-23 08:08] LABS: African American GFR (CKD) >90 (>60 ml/min/1.73 sqM); Anion Gap 8 mmol/L; Blood Urea Nitrogen 20 mg/dL (7-17); Calcium 8.8 mg/dL (8.4-10.2); Carbon Dioxide 24 mmol/L (22-30); Chloride 104 mmol/L (98-107); Glucose 113 mg/dL (74-99); Non-African American GFR(CKD) >90 (>60 ml/min/1.73 sqM); Potassium 4.1 mmol/L (3.5-5.1); Sodium 136 mmol/L (137-145)
[2022-12-23] MEDS: METOPROLOL SUCCINATE (ER) 50 MG TAB.ER.24H PO SCH (09:16)
[2022-12-23] MEDS: APIXABAN 5 MG TAB PO SCH ×2 (09:16→21:52)
[2022-12-23] MEDS: lisinopriL 10 MG TAB PO SCH (09:16)
[2022-12-23 11:54] LABS: Glucose,Whole Blood 122 mg/dL (70-110)
--- NOTE | 2022-12-23 12:57 | P.CNNES ---
History of Present Illness Consult date: 12/23/22 Requesting physician: Bharath Valero Reason for Consult: recurrent dizziness History of Present Illness: This is a 57-year-old woman with history of dizziness, atrial fibrillation on eliquis and ASA, diabetic neuropathy who presents to the emergency department because of dizziness. The patient states that she's been having dizziness since this past Tuesday and it's been intermittent. She feels like she is spinning and mostly with position as well she has nausea. She denies any vomiting, any diplopia, difficulty swallowing, focal weakness, any numbness or tingling that's new. She has chronic ringing in the ears and she denies any hearing loss. She states she had it since this Tuesday and she felt better but then had it again on Tuesday as well as yesterday. Today she feels somewhat better than yesterday and she was walking around but continues to have dizziness. She denies any history of stroke. Denies any recent head trauma or fevers or any recent sickness. Some other workup during his hospital visit consisted of: Hemoglobin A1c 7.3 TSH is 1.[address] of the head is reported as no acute intracranial process. MRI can be performed as clinically indicated. I personally reviewed that CAT scan and there is no acute or subacute ischemia and there is no intraparenchymal hemorrhage or any mass effect. Review of Systems Review of system: The 12 point system was reviewed and apparent positive and negative per HPI. Past Medical History Past Medical History: Diabetes Mellitus, Hyperlipidemia, Hypertension, Osteoarthritis (OA), Renal Disease, Sleep Apnea/CPAP/BIPAP Additional Past Medical History / Comment(s): PAIN TO STOMACH AFTER EATING History of Any Multi-Drug Resistant Organisms: None Reported Past Surgical History: Cholecystectomy, Hernia Repair, Orthopedic Surgery, Tubal Ligation Additional Past Surgical History / Comment(s): FÁTIMA KNEE REPLACEMENT,ABD HERNIA REPAIR,lt knee tendon transfer, kidney bIopsy Past Anesthesia/Blood Transfusion Reactions: Postoperative Nausea & Vomiting (PONV) Additional Past Anesthesia/Blood Transfusion Reaction / Comment(s): SLOW TO WAKE UP FROM ANESTHESIA, STATED "MOM ALMOST AFTER SURGERY-HAD DIFFICULTY WAKING UP" Past Psychological History: No Psychological Hx Reported Smoking Status: Former smoker Past Alcohol Use History: Occasional Past Drug Use History: None Reported - Past Family History Mother Family Medical History: Chest Pain / Angina, Deep Vein Thrombosis (DVT) Father Family Medical History: Coronary Artery Disease (CAD), Diabetes Mellitus Additional Family Medical History / Comment(s): IN CAR ACCIDENT Medications and Allergies Home Medications Medication Instructions Recorded Confirmed Type Aspirin 162 mg PO HS 12/16/14 12/22/22 History Famotidine [Pepcid] 20 mg PO HS 03/07/17 12/22/22 History Calcium Carbonate/Vitamin D3 1 cap PO BID 02/18/21 12/22/22 History [Calcium 600 mg-D3 10 Mcg (400 Iu)] hydroCHLOROthiazide 25 mg PO DAILY 02/18/21 12/22/22 History Empagliflozin [Jardiance] 25 mg PO DAILY 04/14/22 12/22/22 History Ferrous Sulfate [Feosol] 325 mg PO BID 04/14/22 12/22/22 History Finerenone [Kerendia] 20 mg PO DAILY 04/14/22 12/22/22 History Apixaban [Eliquis] 5 mg PO BID 12/22/22 12/22/22 History Dulaglutide [Trulicity] 1.5 mg SQ SA 12/22/22 12/22/22 History Metoprolol Succinate (ER) [Toprol 50 mg PO DAILY 12/22/22 12/22/22 History Xl] Simvastatin [Zocor] 40 mg PO HS 12/22/22 12/22/22 History lisinopriL [Zestril] 10 mg PO DAILY 12/22/22 12/22/22 History metFORMIN HCL ER [Glucophage XR] 500 mg PO DAILY 12/22/22 12/22/22 History Allergies Allergy/AdvReac Type Severity Reaction Status Date / Time codeine AdvReac Nausea & Verified 12/22/22 21:20 Vomiting,skin flushing Penicillins AdvReac Nausea & Verified 12/22/22 21:20 Vomiting Physical Examination - Vital Signs Vital Signs: Vital Signs Temp Pulse Pulse Resp BP BP Pulse Ox 12/23/22 07:45 98.0 F 61 16 115/73 94 L 12/23/22 06:30 98.2 F 83 18 183/93 94 L 12/23/22 00:42 97.3 F L 68 15 113/62 96 12/22/22 21:36 62 16 120/61 97 12/22/22 19:32 98.3 F 74 20 114/71 96 Intake and Output 12/22/22 12/23/22 12/23/22 22:59 06:59 14:59 Other: Weight 117.934 kg GENERAL: The patient is lying in bed and is not in acute distress. NEUROLOGICAL: Higher mental function: The patient is awake, alert, oriented to self, place and time. Patient is following commands. No aphasia and no neglect. Cranial nerves: The pupils are round, equal and reactive to light and accommodation. Visual lindsey are full to confrontation throughout. Extraocular movement is intact no nystagmus is noted. Facial sensation is normal to touch throughout. The facial strength is normal throughout. Hearing is normal bilaterally to hand rub. Tongue is midline and moved [id number] without any difficulty. No dysarthria is noted. Shoulder shrug is normal bilaterally. Motor: The strength is 5 over 5 throughout. Normal tone and bulk. Cerebellum: Normal finger to nose heel to [place] bilaterally. Sensation: Sensation is normal to touch throughout. Reflexes (right/left): 2+ in uppers while lowers are 1+. Plantars are downgoing bilaterally. Results - Laboratory Findings CBC and BMP: 12/23/22 07:45 12/23/22 07:45 Abnormal Lab Findings: Abnormal Labs 12/22/22 12/22/22 12/23/22 20:53 20:53 07:45 WBC 12.7 H Neutrophils # 9.1 H Sodium 136 L Chloride 97 L BUN 24 H Glucose 253 H POC Glucose (mg/dL) Hemoglobin A1c 7.3 H Phosphorus 5.1 H 12/23/22 12/23/22 12/23/22 07:45 07:45 11:52 WBC 11.0 H Neutrophils # Sodium 136 L Chloride BUN 20 H Glucose 113 H POC Glucose (mg/dL) 122 H Hemoglobin A1c Phosphorus Assessment and Plan Assessment: This is a 57-year-old woman with dizziness since this past Tuesday and having episode of room spinning as well as nausea and the dizziness has been intermittent. Denies of any recent falls, fevers, focal weakness, diplopia or difficulty swallowing. Acute vertigo seems more peripheral than central. On examination no focal deficits. History of atrial fibrillation on eliquis and ASA Diabetes mellitus Diabetic neuropathy Morbid obesity Underlying history of hypertension History of sleep apnea on BiPAP Plan: I ordered MRI of the brain with and without to rule out any central cause which I feel unlikely. Orthostatic vitals is under and pending result I placed the patient on meclizine 25 mg 1 tablet 4 times a day scheduled for the first 4 days and after that when necessary. MR the brain is negative as well as orthostatic then the recommended the patient to follow-up with ENT as an outpatient for further evaluation and consider vestibular rehab therapy. We'll defer the rest of the medical management to primary team The plan discussed with the patient and her nurse. Thank you for the consultation. Time with Patient: Greater than 30
[2022-12-23] MEDS: SODIUM CHLORIDE 0.9% 1,000 ML IV SCH ×2 (13:09→21:52)
[2022-12-23] MEDS: MECLIZINE 25 MG TAB PO SCH ×3 (13:13→21:51)
[2022-12-23 17:06] LABS: Glucose,Whole Blood 98 mg/dL (70-110)
[2022-12-23 19:55] LABS: Appearance,Urine Cloudy (Clear); Bacteria,Urine Occasional /hpf; Bilirubin,Urine Negative (Negative); Blood,Urine Trace (Negative); Color,Urine Light Yellow; Glucose,Urine (UA) 4+ (Negative); Ketones,Urine Negative (Negative); Leukocyte Esterase,Urine Moderate (Negative); Mucus,Urine Rare /hpf; Nitrite,Urine Positive (Negative); PH, Urine 5.5 (5.0-8.0); Protein,Urine Negative (Negative); RBC,Urine 2 /hpf (0-5); Specific Gravity,Urine 1.018 (1.001-1.035); Squamous Epithelial Cell,Urine 6 /hpf (0-4); Urobilinogen,Urine <2.0 mg/dL (<2.0); WBC,Urine 37 /hpf (0-5)
[2022-12-23] MEDS ORDERED: FAMOTIDINE 20 MG TAB PO SCH (21:00)
[2022-12-23] MEDS ORDERED: ASPIRIN 81 MG PO SCH (21:00)
--- NOTE | 2022-12-23 22:18 | MR ---
EXAMINATION TYPE: MR brain wo/w con DATE OF EXAM: 12/23/2022 3:09 PM CLINICAL INDICATION:Female, 57 years old with history of vertigo. r/o posterior CVA; COMPARISON: CT 12/22/2022 TECHNIQUE: Multi planar, multi sequence imaging was performed through the brain including: T1, T2, In version recovery, susceptibility weighted imaging and gradient echo imaging and Diffusion weighted im aging. The patient was then given intravenous contrast and multi planar, T1 fat-saturation images wer e obtained. IV Contrast: 12 cc Gadavist FINDINGS: The espino-white junctions, ventricular system, basal cisterns appear unremarkable. Diffusion-weighted imaging shows no evidence of restricted diffusion to suggest acute/subacute infarct. Intracranial art erial flow voids are maintained. Midline structures show no abnormality. Scattered foci of high T2 si gnal intensity are seen within the periventricular white matter most pronounced in the right frontal lobe.. The susceptibility weighted images do not reveal any evidence for micro-hemorrhage. After admi nistration of gadolinium, no abnormal enhancement is seen. The bone marrow signal is within normal limits. Paranasal sinuses and mastoid air cells: No significant paranasal sinus disease. Visualized orbits: Orbital contents are intact. IMPRESSION: 1. No posterior CVA. No evidence of intracranial mass, acute/subacute infarct, or abnormal enhancemen t. 2. Nonspecific white matter changes, likely related to small vessel ischemic disease
[2022-12-24 07:20] VITALS: RESP 18
[2022-12-24] MEDS: APIXABAN 5 MG TAB PO SCH (08:21)
[2022-12-24] MEDS: METOPROLOL SUCCINATE (ER) 50 MG TAB.ER.24H PO SCH (08:22)
[2022-12-24] MEDS: lisinopriL 10 MG TAB PO SCH (08:22)
[2022-12-24] MEDS: MECLIZINE 25 MG TAB PO SCH ×2 (08:22→14:08)
[2022-12-24 09:59] LABS: African American GFR (CKD) >90 (>60 ml/min/1.73 sqM); Anion Gap 9 mmol/L; Blood Urea Nitrogen 21 mg/dL (7-17); Calcium 8.9 mg/dL (8.4-10.2); Carbon Dioxide 22 mmol/L (22-30); Chloride 104 mmol/L (98-107); Glucose 198 mg/dL (74-99); Non-African American GFR(CKD) >90 (>60 ml/min/1.73 sqM); Potassium 4.4 mmol/L (3.5-5.1); Sodium 135 mmol/L (137-145)
[2022-12-24 10:04] LABS: Basophils # (A) 0.1 k/uL (0-0.2); Basophils % (A) 1 %; Eosinophils # (A) 0.6 k/uL (0-0.7); Eosinophils % (A) 6 %; HCT 40.5 % (34.0-46.0); HGB 13.4 gm/dL (11.4-16.0); Lymphocytes # (A) 1.9 k/uL (1.0-4.8); Lymphocytes % (A) 17 %; MCH 31.2 pg (25.0-35.0); MCV 94.6 fL (80.0-100.0); Mean Platelet Volume 7.2; Monocytes # (A) 0.5 k/uL (0-1.0); Monocytes % (A) 5 %; Neutrophils # (A) 8.2 k/uL (1.3-7.7); Neutrophils % (A) 71 %; Platelet Count 259 k/uL (150-450); RBC 4.29 m/uL (3.80-5.40); RDW 13.6 % (11.5-15.5); WBC 11.5 k/uL (3.8-10.6)
[2022-12-24] MEDS: SODIUM CHLORIDE 0.9% 1,000 ML IV SCH (11:53)
--- NOTE | 2022-12-24 16:27 | XR ---
EXAMINATION TYPE: XR chest 2V DATE OF EXAM: 12/24/2022 4:21 PM COMPARISON: Chest radiographs from 06/21/2020 TECHNIQUE: XR chest 2V Frontal and lateral views of the chest. CLINICAL INDICATION:Female, 57 years old with history of leukocytosis and dizziness; FINDINGS: Lungs/Pleura: Prominent interstitial lung markings are seen scattered throughout the lungs. No eviden ce of focal consolidation, pneumothorax or pleural effusion. Pulmonary vascularity: Unremarkable. Heart/mediastinum: Cardiomediastinal silhouette is unremarkable. Musculoskeletal: No acute osseous pathology. IMPRESSION: No acute cardiopulmonary disease/process. No change from prior
[2022-12-24 17:03] VITALS: BP 126/70; PULSE 70; TEMP 97.7
--- NOTE | 2022-12-30 09:58 | P.DS ---
Providers Date of admission: 12/22/22 22:47 Attending physician: Mary Paz Consults: 12/22/22 22:47 Consult Physician Routine Consulting Provider: oCry Pugh Consult Reason/Comments: Persistent dizziness, vertigo, r/o posterior CVA Do you want consulting provider notified?: Yes, Notify in am Primary care physician: Berenice Barajas, [facility] Hospital Course: Diagnoses: Dizziness, significantly resolved suspected secondary to viral labyrinthitis, improving incidental finding of bnormal urine analysis with asymptomatic bacteriuria with no evidence of urinary tract infection clinically Diabetes mellitus with hyperglycemia Paroxysmal atrial fibrillation on Eliquis dehydration Dehydration Hypertension Hyperlipidemia History of osteoarthritis Hypothyroidism Morbidly obese history of kidney stone and she follow up with Dr. olivera [facility] course: This is a pleasant 57 years old female with past medical history of Diabetes Mellitus, Hyperlipidemia, Hypertension, Osteoarthritis (OA), Renal Disease, Sleep Apnea/CPAP/BIPAP Her PCP is Dr. Arriola from [facility] through telemetry medicine pt c/o dizziness and nausea x 3 days. Patient denies vomiting and her nausea is gone now but still has dizziness on admission . Patient did not have chest pain, no dyspnea Patient orthostatic vitals were checked and they were negative, CT of the brain and MRI were negative for acute process. Neurologist evaluated the patient and he recommended ENT as an outpatient as well as vestibular rehab. She was treated with IV hydration normal saline and 75 mL/h, as well as Antivert when necessary and resuming her home medications including aspirin and Eliquis. Patient showed interval improvement on the day of discharge she denies any dizziness while she is lying down, get up and go test was normal. Gait is at baseline. Patient denies any other new symptoms. Patient is willing to go home today. Also I talked to the case mgr Deisy, looks like patient does not qualify for inpatient anyway and she finished her 2 days of observation. Clinically patient is improving and stable. There was incidental findings of bacteriuria with E. coli, I checked the patient more than once including twice on the day of discharge in the morning and in the late afternoon, and both occasions patient denies any other urinary symptoms for her she denies any dysuria, urgency, hesitancy, suprapubic tenderness or flank pain or any other urinary symptoms, because of this patient is not warranted to be treated for his abnormal but asymptomatic urine analysis. Patient also with no fever. However patient informed about this abnormality and instructed if she develops any symptoms as mentioned above then to call her PCP sync medical attention immediately and she verbalized understanding and acceptance. Patient also instructed to follow up with PCP in one week and she agrees. On the day of discharge patient denies any other symptoms. No headache weakness numbness, no chest pain dyspnea or coughing, no abdominal pain vomiting or diarrhea. No urinary complaints as above. Patient was cleared for discharge by neurologist Problems and management plan were discussed with the patient and he verbalized understanding and acceptance Patient was found stable and can be discharged home in guarded prognosis however he needs follow-up as an outpatient. Patient was instructed to follow up with PCP BRAULIO Arriola within one week and patient agrees ( I spent more than 20 min trying to contact her pcp BRAULIO barajas in [place] who the pt follow up with virtually with no answer) patient was instructed to follow up with ENT Dr. Oquendo in one week Rudi neurologist Dr. Miles in 1-2 weeks and she is agreeable Physical exam -Gen: patient is a AAOx3, no distress, obese CVS: S1-S2, RRR, no murmur Lungs: B/L CTA, no wheezing Abdomen: soft, no distention, no tenderness, positive bowel sounds Extremity: no leg edema or induration Time spent more than 35 minutes Patient Condition at Discharge: Stable Plan - Discharge Summary Discharge Rx Participant: Yes New Discharge Prescriptions: New Meclizine [Antivert] 25 mg PO QID #100 tab Continue Aspirin 162 mg PO HS Famotidine [Pepcid] 20 mg PO HS hydroCHLOROthiazide 25 mg PO DAILY Empagliflozin [Jardiance] 25 mg PO DAILY Ferrous Sulfate [Iron (65 MG Elemental)] 325 mg PO BID Dulaglutide [Trulicity] 1.5 mg SQ SA lisinopriL [Zestril] 10 mg PO DAILY Metoprolol Succinate (ER) [Toprol XL] 50 mg PO DAILY Simvastatin [Zocor] 40 mg PO HS Calcium Carbonate/Vitamin D3 [Calcium 600 mg-D3 10 Mcg (400 Iu)] 1 cap PO BID Finerenone [Kerendia] 20 mg PO DAILY Apixaban [Eliquis] 5 mg PO BID Changed metFORMIN HCL ER [Glucophage XR] 500 mg PO BID #60 tab Discharge Medication List Aspirin 162 mg PO HS 12/16/14 [History] Famotidine [Pepcid] 20 mg PO HS 03/07/17 [History] Calcium Carbonate/Vitamin D3 [Calcium 600 mg-D3 10 Mcg (400 Iu)] 1 cap PO BID 02/18/21 [History] hydroCHLOROthiazide 25 mg PO DAILY 02/18/21 [History] Empagliflozin [Jardiance] 25 mg PO DAILY 04/14/22 [History] Ferrous Sulfate [Iron (65 MG Elemental)] 325 mg PO BID 04/14/22 [History] Finerenone [Kerendia] 20 mg PO DAILY 04/14/22 [History] Apixaban [Eliquis] 5 mg PO BID 12/22/22 [History] Dulaglutide [Trulicity] 1.5 mg SQ SA 12/22/22 [History] Metoprolol Succinate (ER) [Toprol XL] 50 mg PO DAILY 12/22/22 [History] Simvastatin [Zocor] 40 mg PO HS 12/22/22 [History] lisinopriL [Zestril] 10 mg PO DAILY 12/22/22 [History] Meclizine [Antivert] 25 mg PO QID #100 tab 12/24/22 [Rx] metFORMIN HCL ER [Glucophage XR] 500 mg PO BID #60 tab 12/24/22 [Rx] Follow up Appointment(s)/Referral(s): Berenice Barajas PAC [Primary Care Provider] - 1-2 days Jose Daniel Oquendo DO [Doctor of Osteopathic Medicine] - 1 Week (ear doctor ) Zaina Miles MD [Medical Doctor] - 2 Weeks (Neurologist) Patient Instructions/Handouts: Dizziness (ED) Activity/Diet/Wound Care/Special Instructions: Heart healthy diet activity is restricted till you see your doctor Check your glucose 4 times a day before each meal and at bedtime, keep the results in a log book and bring it to your doctor on your appointment date If you have glucose less than 70 or more than 400 and call 911 and come to emergency room Discharge Disposition: HOME SELF-CARE
== END 2022-12-24 17:01 | disposition home or self-care (01) ==
LOC: EC 19:16 → 3SCARD 22:47
PROVIDERS: ADMIT Hospitalist; ATTEND Hospitalist
DX: R42 Dizziness and giddiness (principal); E11.65 Type 2 diabetes mellitus with hyperglycemia; E11.40 Type 2 diabetes mellitus with diabetic neuropathy, unspecified; E78.5 Hyperlipidemia, unspecified; I48.0 Paroxysmal atrial fibrillation; I10 Essential (primary) hypertension; E86.0 Dehydration; G47.30 Sleep apnea, unspecified; E03.9 Hypothyroidism, unspecified; M19.90 Unspecified osteoarthritis, unspecified site; H93.13 Tinnitus, bilateral; E66.01 Morbid (severe) obesity due to excess calories; Z87.442 Personal history of urinary calculi; Z87.891 Personal history of nicotine dependence; Z79.82 Long term (current) use of aspirin; Z79.84 Long term (current) use of oral hypoglycemic drugs; Z79.01 Long term (current) use of anticoagulants; Z79.899 Other long term (current) drug therapy; Z88.0 Allergy status to penicillin; Z88.5 Allergy status to narcotic agent
CPT/HCPCS: 96361 ×2; 96374; 96375; 99285; 36415; 93005; 83880; 80053; 80048 ×2; 84443; 83735; 84100; 84484; 85025 ×3; 85610; 85730; 81001; 87086; 87077; 87186; 83036; 71046; 70450; 70553; G0378 ×3; J1200; J2405; A9585

== ENCOUNTER 2023-03-03 09:28 | Day surgery (SDC) | payer OTHER ==
[2023-02-28 11:43] VITALS: BMI 47.0
[~2023-03-03 09:28] MED LIST changes: +ACETAMINOPHEN TAB 500 MG TAB PO PRN; -DEXAMETHASONE SOD PHOSPHATE 4 MG/ML 1 ML VIAL IV ONE; -GENTAMICIN 120 MG in SODIUM CHLORIDE 0.9% 100 ML IVPB PRN; +HEPARIN SODIUM,PORCINE/PF 5,000 UNIT/0.5 ML SYRINGE SQ PRN; +HYDROmorphone 0.5 MG/0.5 ML SYRINGE IVP PRN; +LACTATED RINGERS 1,000 ML IV SCH; +MELOXICAM 7.5 MG TAB PO PRN; -MIDAZOLAM 2 MG/2 ML VIAL IV PRN; +ONDANSETRON 4 MG/2 ML VIAL IVP PRN; -SCOPOLAMINE 1 MG/72 HR PATCH TRANSDERM ONE; -fentaNYL (PF) 50 MCG/ML 2 ML AMP IV PRN
--- NOTE | 2023-03-03 10:25 | P.GSHP ---
History of Present Illness H&P Date: 03/03/23 CHIEF COMPLAINT: Ventral hernia. HISTORY OF PRESENT ILLNESS: The patient is a 57-year-old female who presents with swelling along the abdomen for over 1 year with pain and tenderness. Findings were consistent with ventral hernia. She reports change in bowel habits as a result. Now she presents for further evaluation and management. PAST MEDICAL HISTORY: Please see list and reviewed. PAST SURGICAL HISTORY: Please see list and reviewed. MEDICATIONS: Please see list and reviewed. ALLERGIES: Please see list and reviewed. SOCIAL HISTORY: Please see list and reviewed. FAMILY HISTORY: No reports of Crohn disease or ulcerative colitis. REVIEW OF ORGAN SYSTEMS: CONSTITUTIONAL: No reports of fevers or chills. Has morbid obesity. GI: Past blood in stools or constipation. HEENT: Denies any trouble with vision, hearing or nosebleeds. No difficulty swallowing. LYMPHATIC: The patient denies any lumps and bumps around the neck. ENDOCRINE: Denies any thyroid disorders. Denies any blood sugar glucose intolerance. RESPIRATORY: Denies pneumonia. Denies any troubles with breathing or dyspnea on exertion. CARDIOVASCULAR: Has chest pain, palpitations, or recent heart attacks. GENITOURINARY: Denies any blood in urine or increased urinary frequency. MUSCULOSKELETAL: Has back pain, stiffness, joint arthritis. NEUROLOGIC: Denies any numbness or tingling along the distal extremities. No seizure disorders or headaches. PSYCHIATRIC: Has depression. No suidical ideation. HEMATOLOGIC: Denies any abnormal bleeding or bruising. BREASTS: Denies any breast lumps, pain or nipple discharge. PHYSICAL EXAM: VITAL SIGNS: Stable GENERAL: Well-developed pleasant female in no acute distress. HEENT: No scleral icterus. Extraocular movements grossly intact. Moist buccal mucosa. NECK: Supple without lymphadenopathy. CHEST: Unlabored respirations. Equal bilateral excursions. CARDIOVASCULAR: Regular rate and rhythm. Distal 2+ pulses. ABDOMEN: Soft, nondistended. Tender along the abdomen. Protuberant. MUSCULOSKELETAL: No clubbing, cyanosis, or edema. SKIN: Well perfused. PSYCH: Alert and oriented. No focal or lateralizing signs. ASSESSMENT: 1. Ventral hernia. 2. Morbid obesity, BMI 47.4 3. Atrial fibrillation on blood thinners PLAN: 1. Recommend proceeding with robotic ventral hernia repair with mesh. 2. Benefits and risks of surgical intervention was discussed including possibility of open technique. 3. DVT prophylaxis. 4. Antibiotic prophylaxis. 5. She is moderately elevated risk with BMI over 35 and morbid obesity. 6. Nutritional assessment for BMI over 35 addressed 7. Non-narcotic pain managment reviewed. 8. Tobacco cessation and counseling performed. 9. Diabetes with strict glycemic control reviewed. 10. CBC, CMP and PTT INR advised Past Medical History Past Medical History: Atrial Fibrillation, Diabetes Mellitus, Hyperlipidemia, Hypertension, Osteoarthritis (OA), Renal Disease, Sleep Apnea/CPAP/BIPAP Additional Past Medical History / Comment(s): PAIN TO STOMACH AFTER EATING History of Any Multi-Drug Resistant Organisms: None Reported Past Surgical History: Cholecystectomy, Hernia Repair, Joint Replacement, Orthopedic Surgery, Tubal Ligation Additional Past Surgical History / Comment(s): FÁTIMA KNEE REPLACEMENT, ABD HERNIA REPAIR, lt knee tendon transfer, kidney biopsy, percutaneous nephrostolithotomy Past Anesthesia/Blood Transfusion Reactions: Postoperative Nausea & Vomiting (PONV) Additional Past Anesthesia/Blood Transfusion Reaction / Comment(s): SLOW TO WAKE UP FROM ANESTHESIA, STATED "MOM ALMOST AFTER SURGERY-HAD DIFFICULTY WAKING UP" Past Psychological History: No Psychological Hx Reported Smoking Status: Former smoker Past Alcohol Use History: Occasional Additional Past Alcohol Use History / Comment(s): QUIT SMOKING 2012, STARTED SMOKING 1977 Past Drug Use History: None Reported - Past Family History Mother Family Medical History: Chest Pain / Angina, Deep Vein Thrombosis (DVT) Father Family Medical History: Coronary Artery Disease (CAD), Diabetes Mellitus Additional Family Medical History / Comment(s): IN CAR ACCIDENT Medications and Allergies Home Medications Medication Instructions Recorded Confirmed Type Aspirin 162 mg PO HS 12/16/14 03/03/23 History Famotidine [Pepcid] 20 mg PO HS 03/07/17 03/03/23 History Calcium Carbonate/Vitamin D3 1 cap PO BID 02/18/21 03/03/23 History [Calcium 600 mg-D3 10 Mcg (400 Iu)] hydroCHLOROthiazide 25 mg PO DAILY 02/18/21 03/03/23 History Empagliflozin [Jardiance] 25 mg PO DAILY 04/14/22 03/03/23 History Ferrous Sulfate [Iron (65 MG 325 mg PO BID 04/14/22 03/03/23 History Elemental)] Finerenone [Kerendia] 20 mg PO DAILY 04/14/22 03/03/23 History Apixaban [Eliquis] 5 mg PO BID 12/22/22 03/03/23 History Dulaglutide [Trulicity] 1.5 mg SQ SA 12/22/22 03/03/23 History Metoprolol Succinate (ER) [Toprol 50 mg PO DAILY 12/22/22 03/03/23 History XL] Simvastatin [Zocor] 40 mg PO HS 12/22/22 03/03/23 History lisinopriL [Zestril] 10 mg PO DAILY 12/22/22 03/03/23 History Meclizine [Antivert] 25 mg PO DIRECTED PRN 02/28/23 03/03/23 History metFORMIN HCL ER [Glucophage XR] 1,000 mg PO DAILY 02/28/23 03/03/23 History Allergies Allergy/AdvReac Type Severity Reaction Status Date / Time codeine AdvReac Nausea & Verified 03/03/23 10:07 Vomiting,skin flushing Penicillins AdvReac Nausea & Verified 03/03/23 10:07 Vomiting Surgical - Exam Vital Signs Temp Pulse Resp BP Pulse Ox 97.6 F 65 16 119/56 97 03/03/23 10:16 03/03/23 10:16 03/03/23 10:16 03/03/23 10:16 03/03/23 10:16
[2023-03-03 10:32] LABS: Glucose,Whole Blood 111 mg/dL (70-110)
[2023-03-03 10:42] LABS: Basophils # (A) 0.1 k/uL (0-0.2); Basophils % (A) 1 %; Eosinophils # (A) 0.4 k/uL (0-0.7); Eosinophils % (A) 5 %; HGB 13.7 gm/dL (11.4-16.0); Lymphocytes # (A) 1.8 k/uL (1.0-4.8); Lymphocytes % (A) 22 %; MCH 31.2 pg (25.0-35.0); MCHC 34.4 g/dL (31.0-37.0); MCV 90.7 fL (80.0-100.0); Mean Platelet Volume 6.8; Monocytes # (A) 0.6 k/uL (0-1.0); Monocytes % (A) 7 %; Neutrophils # (A) 5.3 k/uL (1.3-7.7); Neutrophils % (A) 64 %; Platelet Count 282 k/uL (150-450); RBC 4.41 m/uL (3.80-5.40); RDW 13.3 % (11.5-15.5); WBC 8.3 k/uL (3.8-10.6)
[2023-03-03 10:55] LABS: ALT 24 U/L (4-34); African American GFR (CKD) >90 (>60 ml/min/1.73 sqM); Albumin 4.2 g/dL (3.5-5.0); Anion Gap 11 mmol/L; Blood Urea Nitrogen 19 mg/dL (7-17); Calcium 9.9 mg/dL (8.4-10.2); Carbon Dioxide 19 mmol/L (22-30); Chloride 105 mmol/L (98-107); Glucose 106 mg/dL (74-99); Non-African American GFR(CKD) >90 (>60 ml/min/1.73 sqM); Sodium 135 mmol/L (137-145); Total Bilirubin 0.6 mg/dL (0.2-1.3); Total Protein 7.1 g/dL (6.3-8.2)
[2023-03-03] MEDS ORDERED: LIDOCAINE 1%-EPI 1:100,000 50 ML VIAL SQ ONE ×2 (10:56→12:17)
[2023-03-03 10:58] LABS: AST 32 U/L (14-36); Alkaline Phosphatase 58 U/L (38-126); Potassium 4.7 mmol/L (3.5-5.1)
[2023-03-03] MEDS ORDERED: DEXAMETHASONE SOD PHOSPHATE 4 MG/ML 1 ML VIAL IVP ONE (11:00)
[2023-03-03] MEDS ORDERED: MIDAZOLAM 2 MG/2 ML VIAL IVP ONE (11:06)
[2023-03-03 11:11] LABS: Partial Thromboplastin Time 22.5 sec (22.0-30.0); Prothrombin Time 10.9 sec (10.0-12.5)
[2023-03-03] MEDS ORDERED: DEXAMETHASONE SOD PHOSPHATE 4 MG/ML 1 ML VIAL ONE (11:28)
[2023-03-03] MEDS ORDERED: GLYCOPYRROLATE 0.2 MG/ML 2 ML VIAL ONE (11:28)
[2023-03-03] MEDS ORDERED: fentaNYL (PF) 50 MCG/ML 2 ML AMP ONE (11:28)
[2023-03-03] MEDS ORDERED: ROPIVACAINE 5 MG/ML 30 ML VIAL ONE (11:28)
[2023-03-03] MEDS ORDERED: ROCURONIUM 10 MG/ML (5 ML VIAL) IV ONE (11:28)
[2023-03-03] MEDS ORDERED: LIDOCAINE 1% INJ 10MG/ML (20 ML MDV) ONE (11:28)
[2023-03-03] MEDS ORDERED: PROPOFOL 10 MG/ML 20 ML VIAL IV ONE (11:28)
[2023-03-03] MEDS ORDERED: SUCCINYLCHOLINE CHLORIDE 200 MG/10 ML VIAL IV ONE (11:28)
[2023-03-03] MEDS ORDERED: NEOSTIGMINE 1 MG/ML 10 ML VIAL ONE (11:28)
[2023-03-03 13:37] VITALS: TEMP 98.4
[2023-03-03] MEDS ORDERED: diphenhydrAMINE 50 MG/ML 1 ML VIAL IVP ONE (13:58)
[2023-03-03 14:55] LABS: Glucose,Whole Blood 189 mg/dL (70-110)
--- NOTE | 2023-03-03 15:11 | P.OP ---
Date of Procedure: 03/03/23 Description of Procedure: SURGEON: IRENE EVANS MD PREOPERATIVE DIAGNOSES: 1. Recurrent incisional hernia, incarcerated 2. Morbid obesity due to excess calories, BMI 47.4 3. Diabetes type 2, [id number] 4. Hypertensive heart disease 5. Hyperlipidemia 6. Gastric esophageal reflux disease 7. Atrial fibrillation 8. Chronic anticoagulant use 9. Chronic kidney disease, stage III due to diabetes type 2 10. Diabetic nephropathy 11. Chronic obstructive pulmonary disease due to obstructive sleep apnea 12. History of Postoperative nausea or vomiting POSTOPERATIVE DIAGNOSES: 1. Recurrent incisional hernia, incarcerated 5 cm 2. Morbid obesity due to excess calories, BMI 47.4 3. Diabetes type 2, [id number] 4. Hypertensive heart disease 5. Hyperlipidemia 6. Gastric esophageal reflux disease 7. Atrial fibrillation 8. Chronic anticoagulant use 9. Chronic kidney disease, stage III due to diabetes type 2 10. Diabetic nephropathy 11. Intra-abdominal peritoneal adhesions OPERATION: 1. Robotic-assisted da William Xi laparoscopic repair of recurrent incarcerated incisional hernia, 5 cm with mesh, ventralight ST mesh 11.4 cm 2. Robotic-assisted da William Xi laparoscopic lysis of adhesions over 30% of the case Anesthesia: GETA, regional, local Estimated Blood Loss (ml): 5 Pathology: None COMPLICATIONS: None. Operative Findings: 1. Subcutaneous palpable incarcerated hernia defect 5 cm 2. Recurrent incisional umbilical fascial defect, 3 cm 3. Fascia repaired using #1 V-lock suture 4. Incarcerated greater omentum and abdominal wall with lysis of adhesions performed INDICATIONS: The patient is a 57-year-old female who presents abdominal wall hernia with primary repair using mesh. She reported pain discomfort and swelling. Surgical intervention with laparoscopic versus robotic and open techniques were reviewed. Placement of mesh was also reviewed. Benefits and risks were thoroughly described. Informed consent was obtained. DESCRIPTION OF PROCEDURE: The patient was brought into the operating room and laid in supine position. After general induction, the abdomen had been prepped and draped in standard sterile fashion. Ioban draping was also placed. Prior to incision, a timeout protocol was confirmed with surgical team regarding the patient's name including procedures to be performed. The robot was primed prior to the procedure. A field block using local anesthetic was placed along hernia site including the proposed port sites. Initial incision was made with an #11 blade along the left upper quadrant. A 0 degree 5 mm laparoscopic trocar entry was performed and insufflated. Three 8 mm ports were placed along the left lateral abdominal wall under direct localization after exchanging the 5-mm for an 8 mm port. Placements of the ports were 15 cm from the target anatomy and 10 cm apart. An accessory 12 mm port was placed at the left upper quadrant for exchange of mesh including sutures. The [employer] robot was previously primed, prepped and draped then docked from the right side of the patient onto the left side of the patient. I then sat at the robot Da William Xi console where working arms of the robot including Bovie cautery connected to robotic scissors, needle long haul truck driver, and graspers placed by the election assistant. Incarcerated omental contents including omental to abdominal adhesions were found along the upper midline defect including umbilicus. The defect was reduced with greater omentum incarcerated. Incisional umbilical hernia defect of 3 x 3 cm reduced. The incarcerated contents were reduced as the peritoneal fat was cleaned from the abdominal wall. Next, hemostasis was checked with cautery. The hernia defects were oversewn using #1 nonabsorbable V-lock suture with fascial imbrication x 2. Next, ventralight ST mesh 11.4 cm was placed with the rough side towards the abdominal wall as to cover the defect. 2-0 VLOC 9 inch sutures were used to fixate the mesh. A final endoscopic imaging was obtained. All instruments and pneumoperitoneum were evacuated from the abdominal cavity. The da William Xi robot was undocked from the patient. I re-scrubbed into the case for closure of incisions. The fascia of the 12-mm port was probed and less than 8-mm in size. The i ncisions were reapproximated using 4-0 Monocryl in an interrupted subcuticular fashion. Liquid glue was applied to the skin after cleansing the skin with normal saline and dilute hydrogen peroxide. An abdominal binder was placed. An umbilical dressing was placed prior. At the end of the procedure, needle, sponge, and instrument count had been verified correct by hand frame surgical elastic knitter. The patient was taken to the postanesthesia care unit in stable condition. Plan - Discharge Summary Discharge Rx Participant: No New Discharge Prescriptions: New Acetaminophen Tab [Tylenol Tab] 1,000 mg PO Q6HR PRN #30 tablet PRN Reason: Pain Simethicone [Gas-X] 125 mg PO AC-TID PRN #20 capsule PRN Reason: Pain Continue Aspirin 162 mg PO HS Famotidine [Pepcid] 20 mg PO HS hydroCHLOROthiazide 25 mg PO DAILY Empagliflozin [Jardiance] 25 mg PO DAILY Ferrous Sulfate [Iron (65 MG Elemental)] 325 mg PO BID Dulaglutide [Trulicity] 1.5 mg SQ SA lisinopriL [Zestril] 10 mg PO DAILY Metoprolol Succinate (ER) [Toprol XL] 50 mg PO DAILY Simvastatin [Zocor] 40 mg PO HS Calcium Carbonate/Vitamin D3 [Calcium 600 mg-D3 10 Mcg (400 Iu)] 1 cap PO BID Finerenone [Kerendia] 20 mg PO DAILY Apixaban [Eliquis] 5 mg PO BID metFORMIN HCL ER [Glucophage XR] 1,000 mg PO DAILY Meclizine [Antivert] 25 mg PO DIRECTED PRN PRN Reason: Vertigo Discharge Medication List Aspirin 162 mg PO HS 12/16/14 [History] Famotidine [Pepcid] 20 mg PO HS 03/07/17 [History] Calcium Carbonate/Vitamin D3 [Calcium 600 mg-D3 10 Mcg (400 Iu)] 1 cap PO BID 02/18/21 [History] hydroCHLOROthiazide 25 mg PO DAILY 02/18/21 [History] Empagliflozin [Jardiance] 25 mg PO DAILY 04/14/22 [History] Ferrous Sulfate [Iron (65 MG Elemental)] 325 mg PO BID 04/14/22 [History] Finerenone [Kerendia] 20 mg PO DAILY 04/14/22 [History] Apixaban [Eliquis] 5 mg PO BID 12/22/22 [History] Dulaglutide [Trulicity] 1.5 mg SQ SA 12/22/22 [History] Metoprolol Succinate (ER) [Toprol XL] 50 mg PO DAILY 12/22/22 [History] Simvastatin [Zocor] 40 mg PO HS 12/22/22 [History] lisinopriL [Zestril] 10 mg PO DAILY 12/22/22 [History] Meclizine [Antivert] 25 mg PO DIRECTED PRN 02/28/23 [History] metFORMIN HCL ER [Glucophage XR] 1,000 mg PO DAILY 02/28/23 [History] Acetaminophen Tab [Tylenol Tab] 1,000 mg PO Q6HR PRN #30 tablet 03/03/23 [Rx] Simethicone [Gas-X] 125 mg PO AC-TID PRN #20 capsule 03/03/23 [Rx] Follow up Appointment(s)/Referral(s): Irene Evans MD [STAFF PHYSICIAN] - 03/08/23 2:30 pm Patient Instructions/Handouts: *Surgery [facility] - (Anesthesia) Discharge Instructions Outpatient Surgery, Abdominal Binder (DC), Ventral Hernia (GEN) Activity/Diet/Wound Care/Special Instructions: Using antibacterial soap. No lifting over 4 pounds 4 weeks, Apr 03September shower. No bathtub soaks for 2 weeks, Mar 17 Wear abdominal binder daily for comfort except for showering. Use ice along incisions for today to prevent swelling. Take tylenol, simethicone scheduled for 3 days for best pain relief Discharge Disposition: HOME SELF-CARE
[2023-03-03 15:24] VITALS: BP 111/61; PULSE 78
[2023-03-03 15:25] VITALS: RESP 18
--- NOTE | 2023-03-04 06:45 | P.ANPRN ---
Procedure Note - Anesthesia - Nerve Block Performed Bilateral Rectus Abdominis Single Time Out Performed: Yes Date of Procedure: 03/03/23 Procedure Start Time: 11:06 Procedure Stop Time: 11:12 Location of Patient: PreOp Indication: Acute Post-Operative Pain, Requested by Surgeon Sedation Type: Sedate with meaningful contact maintained Preparation: Sterile Prep Position: Supine Needle Types: Pajunk Needle Gauge: 21 Ultrasound used to visualize needle placement: Yes Ultrasound used to observe medication spread: Yes Blood Aspirated: No Pain Paresthesia on Injection Noted: No Resistance on Injection: Normal Image Stored and Saved: Yes Events: Uneventful and Well Tolerated (ropi .5% 20cc plus dexamethasone 4mg given bilaterally)
== END 2023-03-03 16:07 | disposition home or self-care (01) ==
LOC: OR 09:28
PROVIDERS: ATTEND Surgery Plastic and Reconstructive Surgery
DX: K43.6 Other and unspecified ventral hernia with obstruction, without gangrene (principal); K66.0 Peritoneal adhesions (postprocedural) (postinfection); E66.01 Morbid (severe) obesity due to excess calories; E78.5 Hyperlipidemia, unspecified; I48.91 Unspecified atrial fibrillation; M19.90 Unspecified osteoarthritis, unspecified site; G47.33 Obstructive sleep apnea (adult) (pediatric); I12.9 Hypertensive chronic kidney disease with stage 1 through stage 4 chronic kidney disease, or unspecified chronic kidney disease; E11.22 Type 2 diabetes mellitus with diabetic chronic kidney disease; J44.9 Chronic obstructive pulmonary disease, unspecified; K21.9 Gastro-esophageal reflux disease without esophagitis; N18.30 Chronic kidney disease, stage 3 unspecified; F10.90 Alcohol use, unspecified, uncomplicated; Z68.42 Body mass index [BMI] 45.0-49.9, adult; Z79.01 Long term (current) use of anticoagulants; Z79.84 Long term (current) use of oral hypoglycemic drugs; Z87.891 Personal history of nicotine dependence; Z88.0 Allergy status to penicillin; Z88.5 Allergy status to narcotic agent; Z90.49 Acquired absence of other specified parts of digestive tract; Z79.82 Long term (current) use of aspirin; Z79.899 Other long term (current) drug therapy
CPT/HCPCS: 49616; S2900; 64488; 80053; 85025; 85610; 85730

== ENCOUNTER → 2023-06-06 | Outpatient (CLI) | payer OTHER ==
[2023-06-06 18:51] LABS: Basophils # (A) 0.11 X 10*3/uL (0.00-0.10); Eosinophils # (A) 0.28 X 10*3/uL (0.04-0.35); Eosinophils % (A) 2.4 %; HCT 44.6 % (37.2-46.3); HGB 14.3 g/dL (12.0-15.0); Lymphocytes # (A) 1.66 X 10*3/uL (0.90-5.00); Lymphocytes % (A) 14.4 %; MCH 29.9 pg (27.0-32.0); MCHC 32.1 g/dL (32.0-37.0); MCV 93.3 FL (80.0-97.0); Monocytes # (A) 1.08 X 10*3/uL (0.20-1.00); Monocytes % (A) 9.4 %; NRBC Per 100 WBC 0 X 10*3/uL (0.00-0.01); Neutrophils # (A) 8.32 X 10*3/uL (1.80-7.70); Neutrophils % (A) 72.1 %; Platelet Count 341 X 10*3/uL (140-440); RBC 4.78 X 10*6/uL (4.10-5.20); RDW 13.9 % (11.5-14.5); WBC 11.53 X 10*3/uL (4.50-10.00)
[2023-06-06 19:06] LABS: Appearance,Urine Clear (Clear); Bilirubin,Urine Negative (Negative); Blood,Urine Negative (Negative); Color,Urine Yellow (Yellow); Ketones,Urine Negative (Negative); Nitrite,Urine Negative (Negative); PH, Urine 5.5; Specific Gravity,Urine >1.035 (1.001-1.030); Urobilinogen,Urine 0.2
[2023-06-06 19:11] LABS: % Iron Saturation 21.77 (12.00-45.00); ALT 19 U/L (8-44); AST 19 U/L (13-35); Albumin 4.5 g/dL (3.8-4.9); Albumin/Globulin Ratio 1.73 Ratio (1.60-3.17); Alkaline Phosphatase 56 U/L (41-126); BUN/Creat Ratio 24.75 Ratio (12.00-20.00); Blood Urea Nitrogen 19.8 mg/dL (9.0-27.0); Calcium 10.1 mg/dL (8.7-10.3); Carbon Dioxide 24.7 mmol/L (21.6-31.8); Chloride 100 mmol/L (96-109); Chol/HDL Ratio 3.38 Ratio; Globulin 2.6 g/dL (1.6-3.3); Glucose 122 mg/dL (70-110); Iron 81 UG/DL (50-170); LDL Cholesterol,Calculated 67.6 mg/dL (0.0-131.0); Magnesium 2.1 mg/dL (1.5-2.4); Phosphorus 3.8 mg/dL (2.4-5.1); Potassium 4.6 mmol/L (3.5-5.5); Sodium 139 mmol/L (135-145); Total Bilirubin 0.3 mg/dL (0.3-1.2); Total Iron Binding Capacity 372 UG/DL (228-460); Total Protein 7.1 g/dL (6.2-8.2); Uric Acid 6.4 mg/dL (2.9-7.7)
== END | disposition home or self-care (01) ==
LOC: LABWHC1 09:28
PROVIDERS: ATTEND Internal Medicine Endocrinology, Diabetes & Metabolism
DX: E11.65 Type 2 diabetes mellitus with hyperglycemia (principal); E55.9 Vitamin D deficiency, unspecified; N25.81 Secondary hyperparathyroidism of renal origin; M10.9 Gout, unspecified; N39.0 Urinary tract infection, site not specified; N18.1 Chronic kidney disease, stage 1; D63.1 Anemia in chronic kidney disease; E11.22 Type 2 diabetes mellitus with diabetic chronic kidney disease; R80.9 Proteinuria, unspecified
CPT/HCPCS: 36415; 80053; 80061; 81003; 82043; 82306; 82570; 82728; 83036; 83540; 83550; 83735; 83970; 84100; 84443; 84550; 85025

== ENCOUNTER → 2023-06-14 | Outpatient (CLI) | payer OTHER ==
--- NOTE | 2023-06-20 21:47 | P.PCN ---
Date of Procedure: 06/14/23 Operative Findings: Home sleep study report Date of service is 06/14/2023 Pertinent history This is a 58-year-old female patient with known history of obstructive sleep apnea. Noted the patient was treated effectively in the past and the patient was treated with CPAP therapy with good results. The patient currently has 2 CPAP units. The first machine is not working effectively and is set at a pressure of 7 cm of water and she is using another machine in her camper which is set at a pressure of 12 cm of water which is a ResMed 10. Based on the most recent compliancy, the patient was effectively using her machine. The patient was losing weight and her most recent body mass index is 49.7. She came in requesting an updated CPAP unit and for that reason another home sleep study was done to reestablish diagnosis and assess the severity of her illness. Noted the patient has been in long-term CPAP use and she is using CPAP therapy for more than 20 years. I do not have documentation of the original polysomnography however based on the patient's reports, she was told to have an apnea hypopnea index of 56. Pertinent physical findings The patient's height is 5 feet and 1 inch, weight is 263 with a body mass index of 49.7 Technical description The [employer] apnea link system was used to complete this home sleep study. This is a type III home sleep study analysis. The patient had a total of 8 hours and 6 minutes of recording and the study was started at 9:43 PM and ended at 6:39 AM. This was an adequate study as the patient had a total of 8 hours and 46 minutes of flow monitoring and 8 hours and 45 minutes of oxygen saturation monitoring Results The respiratory analysis showed a total of 6 obstructive apneas and a total of 153 obstructive hypopneas and the resulting AHI was 18 consistent with moderately severe disease Oxygenation analysis The patient had a baseline pulse ox of 94% while awake, the average pulse ox during sleep was 94% with a minimum pulse ox of 84% manage patient spends only 4 minutes of the sleep time below pulse ox of 89% Cardiac summary Average heart rate was 68 with a minimum heart rate of 54 and a maximum heart rate of 92 Assessment Symptomatic NIGEL moderate to severe with an AHI of 18. This patient is a long- term CPAP use and the patient has been utilizing CPAP therapy for more than 20 years. 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 She is currently treated effectively with a CPAP pressure of 12 cm of water. Going to check the patient whether she is in need for a new machine. If not, I am going to renew her supplies and the patient is currently utilizing an AirFit F20 fullface mask medium size and this will be ordered to the patient. Encourage weight loss. See him back for another compliance check in a years time. If needed, we will going to order a new CPAP machine for this patient.
== END ==
LOC: 3 N SLEEP 16:59
PROVIDERS: ATTEND Internal Medicine Critical Care Medicine
DX: G47.33 Obstructive sleep apnea (adult) (pediatric) (principal); G47.10 Hypersomnia, unspecified; E66.9 Obesity, unspecified; E11.9 Type 2 diabetes mellitus without complications; I10 Essential (primary) hypertension; Z68.42 Body mass index [BMI] 45.0-49.9, adult; Z88.0 Allergy status to penicillin; Z88.5 Allergy status to narcotic agent; Z79.84 Long term (current) use of oral hypoglycemic drugs; Z79.899 Other long term (current) drug therapy; Z79.85 Long-term (current) use of injectable non-insulin antidiabetic drugs; Z79.82 Long term (current) use of aspirin; Z79.01 Long term (current) use of anticoagulants; Z87.891 Personal history of nicotine dependence

== ENCOUNTER → 2023-06-30 | Outpatient (CLI) | payer OTHER ==
[2023-06-30 09:30] LABS: Partial Thromboplastin Time 24.3 sec (22.0-30.0); Prothrombin Time 10.6 sec (10.0-12.5)
[2023-06-30 17:10] LABS: % Iron Saturation 17.19 (12.00-45.00); ALT 22 U/L (8-44); AST 14 U/L (13-35); Albumin 4.4 g/dL (3.8-4.9); Albumin/Globulin Ratio 1.83 Ratio (1.60-3.17); Alkaline Phosphatase 50 U/L (41-126); BUN/Creat Ratio 29.38 Ratio (12.00-20.00); Blood Urea Nitrogen 23.5 mg/dL (9.0-27.0); Calcium 9.9 mg/dL (8.7-10.3); Carbon Dioxide 23.2 mmol/L (21.6-31.8); Chloride 102 mmol/L (96-109); Globulin 2.4 g/dL (1.6-3.3); Glucose 133 mg/dL (70-110); Iron 60 UG/DL (50-170); LDL Cholesterol,Calculated 65.8 mg/dL (0.0-131.0); Phosphorus 4.5 mg/dL (2.4-5.1); Potassium 4.3 mmol/L (3.5-5.5); Sodium 139 mmol/L (135-145); Total Bilirubin 0.3 mg/dL (0.3-1.2); Total Iron Binding Capacity 349 UG/DL (228-460); Total Protein 6.8 g/dL (6.2-8.2)
[2023-06-30 18:10] LABS: HCT 41.9 % (37.2-46.3); HGB 13.5 g/dL (12.0-15.0); MCH 30.8 pg (27.0-32.0); MCHC 32.2 g/dL (32.0-37.0); MCV 95.4 FL (80.0-97.0); Mean Platelet Volume 9.5 FL (9.5-12.2); NRBC Per 100 WBC 0 X 10*3/uL (0.00-0.01); Platelet Count 288 X 10*3/uL (140-440); RBC 4.39 X 10*6/uL (4.10-5.20); RDW 14.2 % (11.5-14.5); WBC 9.42 X 10*3/uL (4.50-10.00)
[2023-06-30 18:58] LABS: Urine Alcohol Negative (Negative); Urine Barbiturate Negative (Negative); Urine Cocaine Negative (Negative); Urine Methadone Negative (Negative); Urine Opiates Negative (Negative); Urine Phencyclidine Negative (Negative)
[2023-07-01 12:42] LABS: Zinc, Serum 92 ug/dL (60-130)
== END | disposition home or self-care (01) ==
LOC: LABPAT 08:32
PROVIDERS: ATTEND Surgery Plastic and Reconstructive Surgery
DX: E89.1 Postprocedural hypoinsulinemia (principal); E66.01 Morbid (severe) obesity due to excess calories; D50.8 Other iron deficiency anemias; K91.2 Postsurgical malabsorption, not elsewhere classified; E44.0 Moderate protein-calorie malnutrition; E44.1 Mild protein-calorie malnutrition; E45 Retarded development following protein-calorie malnutrition; E55.9 Vitamin D deficiency, unspecified; K74.1 Hepatic sclerosis; N19 Unspecified kidney failure; K50.90 Crohn's disease, unspecified, without complications; T56.894A Toxic effect of other metals, undetermined, initial encounter; R94.31 Abnormal electrocardiogram [ECG] [EKG]
CPT/HCPCS: 80053; 80061; 80306; 80323; 82306; 82525; 82607; 82746; 83036; 83540; 83550; 83735; 83970; 84100; 84134; 84255; 84425; 84443; 84590; 84630; 85027; 85610; 85730; 93005

== ENCOUNTER → 2023-07-05 | Outpatient (CLI) | payer OTHER ==
--- NOTE | 2023-07-07 11:49 | CTL ---
EXAMINATION TYPE: CT Low Dose Lung DATE OF EXAM ORDERED: 07/05/2023 HISTORY: . Lung cancer screening CT DLP: 113 mGycm Automated exposure control for dose reduction was used. SCREENING VISIT: Initial COMPARISON: None TECHNIQUE: Low dose computed tomography scan was performed through the chest at 1 mm thick sections a nd reconstructed images in the coronal plane at [address] DIAGNOSTIC QUALITY: Limited, but interpretable FINDINGS: LUNG NODULES: Present, detailed below: 1. There may be couple of tiny densities in the lateral left lower lung field, example image series 4 image 160. LUNGS: COPD: Severity: None Fibrosis: Severity: None Lymph nodes: None Other findings: None RIGHT PLEURAL SPACE: Effusion: None Calcification: None Thickening: None Pneumothorax: None LEFT PLEURAL SPACE: Effusion: None Calcification: None Thickening: None Pneumothorax: None HEART: Heart Size: Normal Coronary calcification: Mild Pericardial effusion: None OTHER FINDINGS: Upper abdomen: Normal Bony thorax: Normal Supraclavicular region: Normal Other: Ascending thoracic aorta measures 3.5 cm at the pulmonary artery. Main pulmonary artery the bi furcation is 2.9 cm. IMPRESSION: Benign appearance. FOLLOW UP CT CHEST RECOMMENDATION: Follow-up low-dose CT chest [address] LUNG RAD: Lung-Rad 2 Benign Appearance or Behavior
== END | disposition home or self-care (01) ==
LOC: RADCTMAIN 09:49
PROVIDERS: ATTEND Family Medicine
DX: Z12.2 Encounter for screening for malignant neoplasm of respiratory organs (principal); Z87.891 Personal history of nicotine dependence
CPT/HCPCS: 71271

== ENCOUNTER → 2023-10-13 | Outpatient (CLI) | payer OTHER ==
--- NOTE | 2023-10-14 09:25 | US ---
EXAMINATION TYPE: US kidneys/renal and bladder DATE OF EXAM: 10/13/2023 COMPARISON: US 10/12/2022 CLINICAL INDICATION: Female, 58 years old with history of Z87.442PERSONAL HISTORY OF URINARY CALCULI; Hx surgery for kidney stone left kidney. EXAM MEASUREMENTS: Right Kidney: 12.5 x 6.2 x 4.9 cm Left Kidney: 12.2 x 5.3 x 5.5 cm Post Void Residual Volume: Bladder not visualized post void Right Kidney: Renal pelvis appears prominent. -Hyperechoic area seen lower pole: 2.1 x 2.0 x 1.4 cm. -Hyperechoic area seen upper pole: 1.1 x 1.2 x 1.0 cm. Left Kidney: No hydronephrosis or masses seen Bladder: Appears anechoic. Bilateral Jets seen: No, only right jet was seen during exam. Normal Post Void Residual: yes, bladder not visualized IMPRESSION: 1. Well-circumscribed hyperechoic right lower pole mass measuring 2.1 x 2.0 x 1.4 cm. Previously harshad ured 1.8 x 1.6 x 1.5 cm. 2. New well-circumscribed hyperechoic right renal cortical mass measuring 1.1 x 1.2 x 1.0 cm. 3. Above masses may indicate angiomyolipomas but given the new mass and the enlarging mass, MRI of th e kidneys is recommended for further evaluation.
== END | disposition home or self-care (01) ==
LOC: RADUSWWP 13:55
PROVIDERS: ATTEND Internal Medicine Nephrology
DX: N28.89 Other specified disorders of kidney and ureter (principal); Z87.442 Personal history of urinary calculi
CPT/HCPCS: 76770

== ENCOUNTER → 2023-11-01 | Outpatient (CLI) | payer OTHER ==
--- NOTE | 2023-11-02 11:59 | MM ---
Reason for Exam: Screening (asymptomatic). Last screening mammogram was performed 12 month(s) ago. Patient History: Menarche at age 8. First Full-Term at age 18. Postmenopausal. Risk Values: Zeinab 5 year model risk: 1.1%. NCI Lifetime model risk: 6.0%. Prior Study Comparison: 09/03/2020 Bilateral Screening Mammogram, [facility]. 02/23/2021 Left Diagnostic Mammogram, [facility]. 10/12/2022 Bilateral MG 3D screening mammo w/cad, [facility]. Tissue Density: There are scattered areas of fibroglandular density. Findings: Analyzed By CAD. Right breast: There is no suspicious group of microcalcifications or new suspicious mass. Benign-appearing calcifications right breast. Left breast: There is no suspicious group of microcalcifications or new suspicious mass. Overall Assessment: Benign, BI-RAD 2 Management: Screening Mammogram of both breasts in [address] [facility] will attempt to contact patient to return for supplemental views and ultrasound if indicated. Patient should continue monthly self-breast exams. A clinical breast exam by your physician is recommended on an annual basis. This exam should not preclude additional follow-up of suspicious palpable abnormalities. Note on Zeinab scores and lifetime risk: 1. A Zeinab score greater than 3% is considered moderate risk. If this is the case, consider specialist referral to assess eligibility for a risk reducing agent. 2. If overall lifetime risk for the development of breast cancer is 20% or higher, the patient may qualify for future screening with alternating mammogram and breast MRI. Electronically signed and approved by: Teddy Bains DO
== END | disposition home or self-care (01) ==
LOC: RADMAMWWP 08:16
PROVIDERS: ATTEND Family Medicine
DX: Z12.31 Encounter for screening mammogram for malignant neoplasm of breast (principal); Z78.0 Asymptomatic menopausal state
CPT/HCPCS: 77063; 77067

== ENCOUNTER → 2023-11-03 | Outpatient (CLI) | payer OTHER ==
--- NOTE | 2023-11-03 16:04 | CT ---
EXAMINATION TYPE: CT abdomen wo con DATE OF EXAM: 11/03/2023 COMPARISON: 03/10/2022, ultrasound 10/13/2023 HISTORY: 58-year-old female D41.01, right renal mass TECHNIQUE: Contiguous axial scanning of the abdomen without IV contrast. Coronal and sagittal reconst ructions performed. CT DLP: 2226 mGycm Automated exposure control for dose reduction was used. FINDINGS: Heart is normal size without pericardial effusion. Circumflex and RCA coronary artery calcifications are present. Strandy atelectasis in the lower lungs. No pleural effusion. Tiny hiatal hernia. Noncontrast appearance of the liver, adrenal glands, spleen, and pancreas within normal limits. Noreen cystectomy clips. Left kidney shows a couple nonobstructive stones within the calyceal system measuring 6 mm and 3 mm. The previous staghorn calculus is no longer present see on 2021. Tiny 5 mm fat density cortical lesion medial upper pole right kidney measuring 1.5 cm of the lateral lower pole are redemonstrated, unchanged from 03/10/2022 suggesting benign and most. No hydronephrosis on either side. No dilated small bowel, free fluid, or free air. No mesenteric or retroperitoneal lymphadenopathy. Mild stool burden. No pericolonic inflammatory change. Bones: Lower thoracic spine. Advanced hypertrophic facet arthropathy throughout the lumbar spine with degenerative grade 1 anterolisthesis L3-L4. Possible moderate spinal canal stenosis here at L3-L4. S uspect severe focal spinal canal stenosis L5-S1. IMPRESSION: 1. A COUPLE NONOBSTRUCTING STONES WITHIN THE LEFT KIDNEY CALYCEAL SYSTEM MEASURING 6 MM AND 3 MM. THE PREVIOUS STAGHORN CALCULUS SEEN IN 2021 IS NO LONGER PRESENT. 2. 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
== END | disposition home or self-care (01) ==
LOC: RADCTMAIN 15:00
PROVIDERS: ATTEND Urology
DX: D41.01 Neoplasm of uncertain behavior of right kidney (principal); N20.0 Calculus of kidney; Z87.442 Personal history of urinary calculi
CPT/HCPCS: 74150

== ENCOUNTER → 2024-03-24 | Outpatient (CLI) | payer OTHER ==
[2024-03-24 23:03] LABS: Microalbumin Creatinine Ratio <31 mg/g Cr (0-30); Urine Creatinine 39.3 mg/dL (28.0-217.0)
[2024-03-24 23:09] LABS: ALT 19 U/L (8-44); AST 19 U/L (13-35); Albumin 4.3 g/dL (3.8-4.9); Albumin/Globulin Ratio 1.95 Ratio (1.60-3.17); Alkaline Phosphatase 52 U/L (41-126); BUN/Creat Ratio 32.29 Ratio (12.00-20.00); Blood Urea Nitrogen 22.6 mg/dL (9.0-27.0); Calcium 9.7 mg/dL (8.7-10.3); Carbon Dioxide 25.3 mmol/L (21.6-31.8); Chloride 101 mmol/L (96-109); Chol/HDL Ratio 2.83 Ratio; Globulin 2.2 g/dL (1.6-3.3); Glucose 102 mg/dL (70-110); LDL Cholesterol,Calculated 77.4 mg/dL (0.0-131.0); Potassium 4.5 mmol/L (3.5-5.5); Sodium 137 mmol/L (135-145); Total Bilirubin 0.4 mg/dL (0.3-1.2); Total Protein 6.5 g/dL (6.2-8.2)
== END | disposition home or self-care (01) ==
LOC: LABWHC1 08:59
PROVIDERS: ATTEND Internal Medicine Endocrinology, Diabetes & Metabolism
DX: E11.22 Type 2 diabetes mellitus with diabetic chronic kidney disease (principal); E11.65 Type 2 diabetes mellitus with hyperglycemia; N18.9 Chronic kidney disease, unspecified
CPT/HCPCS: 36415; 80053; 80061; 82043; 82570; 83036; 84443

== ENCOUNTER → 2024-08-18 | Outpatient (CLI) | payer OTHER ==
[2024-08-18 13:50] LABS: Appearance,Urine Clear (Clear); Bilirubin,Urine Negative (Negative); Blood,Urine Negative (Negative); Color,Urine Yellow (Yellow); Ketones,Urine Negative (Negative); Nitrite,Urine Negative (Negative); PH, Urine 5.5; Specific Gravity,Urine 1.028 (1.001-1.030); Urobilinogen,Urine 0.2 E.U./DL
[2024-08-18 14:01] LABS: Urine Creatinine 59.5 mg/dL (28.0-217.0)
[2024-08-18 14:09] LABS: % Iron Saturation 18.73 (12.00-45.00); ALT 23 U/L (8-44); AST 19 U/L (13-35); Albumin 4.1 g/dL (3.8-4.9); BUN/Creat Ratio 32.67 Ratio (12.00-20.00); Blood Urea Nitrogen 19.6 mg/dL (9.0-27.0); Calcium 9.6 mg/dL (8.7-10.3); Carbon Dioxide 27.6 mmol/L (21.6-31.8); Chloride 102 mmol/L (96-109); Chol/HDL Ratio 3.29 Ratio; Glucose 119 mg/dL (70-110); Iron 65 UG/DL (50-170); LDL Cholesterol,Calculated 74.6 mg/dL (0.0-131.0); Potassium 4.5 mmol/L (3.5-5.5); Sodium 139 mmol/L (135-145); Total Iron Binding Capacity 347 UG/DL (228-460)
[2024-08-18 14:18] LABS: Basophils # (A) 0.07 X 10*3/uL (0.00-0.10); Basophils % (A) 0.8 %; Eosinophils # (A) 0.39 X 10*3/uL (0.04-0.35); Eosinophils % (A) 4.7 %; HCT 42.3 % (37.2-46.3); HGB 13.6 g/dL (12.0-15.0); Lymphocytes # (A) 1.66 X 10*3/uL (0.90-5.00); Lymphocytes % (A) 19.9 %; MCH 29.8 pg (27.0-32.0); MCHC 32.2 g/dL (32.0-37.0); MCV 92.6 FL (80.0-97.0); Mean Platelet Volume 9.1 FL (9.5-12.2); Monocytes # (A) 0.96 X 10*3/uL (0.20-1.00); Monocytes % (A) 11.5 %; NRBC Per 100 WBC 0 X 10*3/uL (0.00-0.01); Neutrophils # (A) 5.25 X 10*3/uL (1.80-7.70); Neutrophils % (A) 62.7 %; Platelet Count 326 X 10*3/uL (140-440); RBC 4.57 X 10*6/uL (4.10-5.20); RDW 13.9 % (11.5-14.5); WBC 8.36 X 10*3/uL (4.50-10.00)
== END | disposition home or self-care (01) ==
LOC: LABWHC1 08:55
PROVIDERS: ATTEND Internal Medicine Cardiovascular Disease
DX: E78.2 Mixed hyperlipidemia (principal); E55.9 Vitamin D deficiency, unspecified; N18.1 Chronic kidney disease, stage 1; D63.1 Anemia in chronic kidney disease; N25.81 Secondary hyperparathyroidism of renal origin; N39.0 Urinary tract infection, site not specified; R80.9 Proteinuria, unspecified
CPT/HCPCS: 36415; 80048; 80061; 81003; 82040; 82043; 82306; 82570; 82728; 83540; 83550; 83970; 84450; 84460; 85025